=== PATIENT | female | born 1955 | race Caucasian/White ===

== ENCOUNTER 2020-06-02 22:01 | Observation (INO) | payer MEDICARE, SELFPAY ==
--- NOTE | 2020-06-02 22:10 | XR_ITS ---
WS: [id number] XR chest 1V portable [id number] REASON FOR EXAM: Syncope FINDINGS: Mild tortuosity of the thoracic aorta. Normal heart size. No active pulmonary parenchymal or pleural disease noted. No significant bony thorax abnormality. XR/XR chest 1V portable [id number] IMPRESSION: No acute chest abnormality.
[2020-06-02 22:11] VITALS: BP 133/85; BP 144/88; BP 163/92; PULSE 86; PULSE 97; PULSE 98
--- NOTE | 2020-06-02 22:11 | ECG_ITS ---
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
[2020-06-02 22:16] VITALS: PULSE 87; RESP 16; TEMP 36.5; O2SAT 96; BMI 24.6
--- NOTE | 2020-06-02 22:18 | ED_ITS ---
HPI - Syncope General: Chief Complaint: Syncope Stated Complaint: syncope Time Seen by Provider: 06/02/20 22:05 Source: patient and EMS Mode of arrival: EMS Limitations: no limitations History of Present Illness: HPI narrative: Lisseth is a 64-year-old female who comes in after a syncopal spell at home. She has been sick today with a fever as high as 101. There is a known Covid positive patient living in the home. Patient states that she felt ill like she needed to have a bowel movement and quickly tried it get up off the couch to go to the bathroom but passed out when she did so. She was incontinent of stool and vomited but there was no seizure activity described. Patient states she had cramping abdominal pain with this. Patient states now she still feels achy and like she is hurting all over. Denies any preceding chest pain, palpitations or headache. Associated symptoms: Reports abdominal pain, fever(s) and nausea; Deny chest pain, headache(s), lightheadedness or vertigo Review of Systems Const: Reports: fever(s), chills, body aches, fatigue and malaise Eyes: Denies: change in vision, blurry vision, photophobia, eye discomfort, eye discharge, eye redness or yellow eyes ENMT: Denies: throat pain, odynophagia, hoarseness, swelling of lips/tongue, ear or mastoid pain, ear discharge, change in hearing or nasal discharge Card: Reports: syncope; Denies: chest pain, palpitations, irregular heart rhythm, edema, lightheadedness, pre-syncope, dyspnea on exertion or orthopnea Resp: Denies: dyspnea, productive cough, non-productive cough, wheezing, hemoptysis or chest congestion GI: Reports: abdominal pain, nausea, vomiting and diarrhea; Denies: hematemesis, coffee ground emesis, heartburn, constipation, GI cramping, hematochezia or melena : Denies: flank pain, dysuria, urinary frequency, urinary urgency or hematuria Musc: Denies: neck pain, back pain, extremity pain, extremity swelling, joint pain, joint swelling, joint redness, joint warmth or joint stiffness Skin/Breast: Denies: rash, pruritus, erythema, skin pain or skin tenderness Neuro: Denies: headache(s), numbness in extremities, weakness in extremities, sensory changes, lack of coordination, difficulty walking, dizziness, vertigo, confusion, Slurred speech present or seizure-like activity Matt/Lymph: Denies: easy bruising, easy bleeding, petechiae, purpura or enlarged lymph nodes All/Imm: Denies: urticaria, throat swelling, tongue swelling, facial swelling or acute wheezing PFSH ED PFSH: Medical History (Updated 06/03/20 @ 04:39 by Shana Glover) Back pain Gout Uterovaginal prolapse, complete Surgical History (Updated 06/02/20 @ 22:20 by Shana Glover) History of back surgery (~2005) Lumbar History of salpingectomy (~1971) Open salpingectomy Family History (Updated 06/01/20 @ 16:59 by John Luther) Father CAD (coronary artery disease) Mother Hypertension Sister Hypertension Social History (Updated 06/01/20 @ 17:00 by John Israel) Smoking and tobacco status: current every day smoker cigarettes Packs smoked per day: 2 [ Other cigarette details: started age 51 ] Alcohol intake: never Physical Exam Const: COMMON NORMALS: no acute distress, patient oriented x3, no limitations and alert GENERAL APPEARANCE: cooperative HENMT: COMMON NORMALS: normocephalic, atraumatic, external ears normal, EAC's normal and Normal external nose present HEAD & SCALP: normal to inspection, normocephalic and atraumatic FACE & SINUS: normal facial exam and face symmetric NOSE: Normal external nose present and Normal nares present EXTERNAL EAR: Yes external ears normal EXTERNAL AUDITORY CANAL: EAC's normal MOUTH: Normal oral and palatal mucosa present, lip normal and tongue normal Eye: COMMON NORMALS: Equal, round and reactive pupils present and conjunctivae normal GENERAL EYE: appearance normal, both eyes and all related structures ALIGNMENT: Yes alignment normal PERIORBITAL: periorbital findings normal EYELID: eyelids normal CONJUNCTIVA: Yes conjunctivae normal SCLERA: sclerae normal PUPIL: Yes Equal, round and reactive pupils present Neck/C-Spine: COMMON NORMALS: full ROM, no lymphadenopathy, supple, no meningeal signs and no JVD GENERAL: Yes normal visual inspection and Yes trachea midline Chest: COMMONS NORMALS: normal inspection of the chest and normal palpation of entire chest wall Resp: COMMON NORMALS: normal respiratory effort, No retractions, No use of accessory muscles and clear to auscultation bilaterally EFFORT & INSPECTION: Yes able to speak in complete sentences and Yes symmetric chest movement AUSCULTATION: clear to auscultation bilaterally, no crackles, no rales, no rhonchi and no wheezes Cardio: COMMON NORMALS: no JVD, regular rate, regular rhythm, S1 normal heart sound present and S2 normal heart sound present RATE: regular rate RHYTHM: regular rhythm HEART SOUNDS: S1 normal heart sound present, S2 normal heart sound present, no click, no gallops, no murmurs and no rubs GI: COMMON NORMALS: Soft to palpation and No hepatosplenomegaly present PALPATION: Yes Soft to palpation, No Tenderness to palpation present (GI), No Guarding due to palpation present (GI), No Rigid due to palpation, Yes No hepatosplenomegaly present, No Hernia present, No Palpable mass present and No Pulsatile mass present : COMMON NORMALS: Yes no CVA tenderness BLADDER/KIDNEY EXAM: Yes no CVA tenderness EXTERNAL FEMALE EXAM: No Hernia present Back/Pelvis: COMMON NORMALS: no CVA tenderness, thoracic and lumbar spine normal to inspection, no thoracic nor lumbar tenderness and thoraco-lumbar ROM normal Extremity: COMMON NORMALS: normal to inspection, full ROM, capillary refill normal, no joint enlargement, no clubbing, cyanosis or edema and no calf tenderness Neuro: COMMON NORMALS: patient oriented x3, CN's II-XII intact bilaterally, moves all extremities, no focal motor deficits and no sensory deficits noted SENSORIUM/ORIENTATION: Yes alert MENINGEAL SIGNS: Yes no meningeal signs SPEECH: speech normal Psych: COMMON NORMALS: mental status grossly normal, Normal thought process present, cooperative, normal affect, speech normal and activity/motor behavior normal SPEECH: Yes normal speech THOUGHT PROCESS: Normal thought process present Skin: COMMON NORMALS: no rashes or lesions noted, turgor normal, no jaundice, no petechiae and no mottling GENERAL SKIN EXAM: no rashes or lesions noted and turgor normal Course ED course: 0108 -orthostatic blood pressures positive. IV fluids have been initiated. Vital Signs: Vital signs: Vital Signs Temperature 97.7 F 06/02/20 22:16 Pulse Rate 83 06/03/20 04:00 Respiratory Rate 17 06/03/20 04:00 Blood Pressure 119/80 06/03/20 04:00 Pulse Oximetry 95 06/03/20 04:00 MDM - Syncope MDM Narrative: Medical decision making narrative: Lisseth is a nice 64-year-old female who comes in after she had a syncopal spell while needing to go to the bathroom. There was no seizure activity described. I believe this was a vasovagal episode secondary to the urgency to have a bowel movement. Patient does appear to be dehydrated from diarrhea. She does test positive for Covid and has had a known exposure. Overall she feels poorly and I believe she would benefit from coming into the hospital for IV hydration. Case was reviewed with Dr. Nuñez and he is agreeable to admit. Lab Data: Attestation: I reviewed the patient's lab results. Labs: Lab Results 06/02/20 06/02/20 06/02/20 Range/Units 22:10 22:22 22:22 WBC 5.2 (4.0-10.0) 10^3/ uL RBC 4.38 (4.1-5.3) 10^6/u L Hgb 14.6 (11.5-15.3) g/dL Hct 42.4 (37.0-47.0) % MCV 96.8 (81-99) fL MCH 33.3 (28.0-34.0) pg MCHC 34.4 (30.0-36.0) g/dL RDW 12.6 (12.1-15.1) % Plt Count 195 (130-400) 10^3/c mm MPV 9.7 (7.4-10.4) fL Neut % (Auto) 48.3 % Lymph % (Auto) 40.7 % [place] % (Auto) 10.6 % Eos % (Auto) 0.0 % Baso % (Auto) 0.4 % Neut # (Auto) 2.51 (1.8-7.7) 10^3/u L Lymph # (Auto) 2.1 (0.8-4.8) 10^3/u L [place] # (Auto) 0.6 (0.2-0.9) 10^3/u L Eos # (Auto) 0.0 (0.0-0.8) 10^3/u L Baso # (Auto) 0.0 (0.0-0.1) 10^3/u L Nucleated RBC % (a uto) 0 % Nucleated RBCs # 0.0 /100WBC PT 12.50 (12.1-14.9) SECO NDS INR 0.90 (0.8-1.2) Fibrinogen (174-498) mg/dL D-Dimer 0.99 H (0-0.59) ug/mIFE U Specimen Type Sample Site ABG pH (7.35-7.45) ABG pCO2 (35-45) mmHg ABG pO2 (80.0-100.0) mmH g ABG HCO3 (22-26) mmol/L ABG Base Excess (-2.0-2.0) mmol/ L Rick Test Hematocrit (37-47) % O2 Delivery Device FiO2 % Manager Of [employer] ID Sodium 137 (136-145) mmol/L Potassium 4.0 (3.5-5.1) mmol/L Chloride 102 (98-107) mmol/L Carbon Dioxide 24 (22-29) mmol/L Anion Gap 15.0 (5-19) BUN 11 (8-23) mg/dL Creatinine 0.9 (0.5-0.9) mg/dL GFR Calculation 62.6 L (90-130) mL/min Glucose 147 H (65-115) mg/dL Calculated Osmolal ity 286 (285-295) mOsm/k g Lactic Acid Calcium 8.9 (8.5-10.5) mg/dL Magnesium 2.2 (1.7-2.3) mg/dL Total Bilirubin 0.2 (0.15-1.2) mg/dL AST 25 (0-32) U/L ALT 13 (0-33) U/L Alkaline Phosphata se 114 H (35-105) IU/L Lactate Dehydrogen ase (135-214) U/L Creatine Kinase 38 (26-192) U/L Troponin T Baselin e (0-10) ng/L Troponin T 120 Min [place] (0-10) ng/L Delta Troponin T (0-10) ABS# C-Reactive Protein (0.0-4.9) mg/L Total Protein 6.3 L (6.6-8.7) g/dL Albumin 4.2 (3.5-5.2) g/dL Globulin 2.1 (1.3-4.6) g/dL Lipase 59 (13-60) U/L Procalcitonin (0-0.5) ng/mL TSH 3.89 (0.27-4.20) uIU/ mL Free T4 1.28 (0.82-1.77) ng/d L Urine Color (Yellow) Urine Appearance (CLEAR) Urine pH (5-7) Ur Specific Gravit y (1.005-1.030) Urine Protein (Negative) Urine Glucose (UA) (Normal) Urine Ketones (Negative) Urine Blood (Negative) Urine Nitrate (Negative) Urine Bilirubin (Negative) Urine Urobilinogen (Negative) mg/dL Ur Leukocyte Jennie ase (Negative) Serum Ketones Negative (Negative) Influenza Type A A g (Negative) Influenza Type B A g (Negative) SARS-CoV-2 Ag (Rap id) (Negative) 06/02/20 06/02/20 06/02/20 Range/Units 22:22 22:22 22:22 WBC (4.0-10.0) 10^3/ uL RBC (4.1-5.3) 10^6/u L Hgb (11.5-15.3) g/dL Hct (37.0-47.0) % MCV (81-99) fL MCH (28.0-34.0) pg MCHC (30.0-36.0) g/dL RDW (12.1-15.1) % Plt Count (130-400) 10^3/c mm MPV (7.4-10.4) fL Neut % (Auto) % Lymph % (Auto) % [place] % (Auto) % Eos % (Auto) % Baso % (Auto) % Neut # (Auto) (1.8-7.7) 10^3/u L Lymph # (Auto) (0.8-4.8) 10^3/u L [place] # (Auto) (0.2-0.9) 10^3/u L Eos # (Auto) (0.0-0.8) 10^3/u L Baso # (Auto) (0.0-0.1) 10^3/u L Nucleated RBC % (a uto) % Nucleated RBCs # /100WBC PT (12.1-14.9) SECO NDS INR (0.8-1.2) Fibrinogen 449 (174-498) mg/dL D-Dimer (0-0.59) ug/mIFE U Specimen Type Sample Site ABG pH (7.35-7.45) ABG pCO2 (35-45) mmHg ABG pO2 (80.0-100.0) mmH g ABG HCO3 (22-26) mmol/L ABG Base Excess (-2.0-2.0) mmol/ L Rick Test Hematocrit (37-47) % O2 Delivery Device FiO2 % Manager [employer] ID Sodium (136-145) mmol/L Potassium (3.5-5.1) mmol/L Chloride (98-107) mmol/L Carbon Dioxide (22-29) mmol/L Anion Gap (5-19) BUN (8-23) mg/dL Creatinine (0.5-0.9) mg/dL GFR Calculation (90-130) mL/min Glucose (65-115) mg/dL Calculated Osmolal ity (285-295) mOsm/k g Lactic Acid Cancelled Calcium (8.5-10.5) mg/dL Magnesium (1.7-2.3) mg/dL Total Bilirubin (0.15-1.2) mg/dL AST (0-32) U/L ALT (0-33) U/L Alkaline Phosphata se (35-105) IU/L Lactate Dehydrogen ase (135-214) U/L Creatine Kinase (26-192) U/L Troponin T Baselin e 9 (0-10) ng/L Troponin T 120 Min [place] (0-10) ng/L Delta Troponin T (0-10) ABS# C-Reactive Protein (0.0-4.9) mg/L Total Protein (6.6-8.7) g/dL Albumin (3.5-5.2) g/dL Globulin (1.3-4.6) g/dL Lipase (13-60) U/L Procalcitonin (0-0.5) ng/mL TSH (0.27-4.20) uIU/ mL Free T4 (0.82-1.77) ng/d L Urine Color (Yellow) Urine Appearance (CLEAR) Urine pH (5-7) Ur Specific Gravit y (1.005-1.030) Urine Protein (Negative) Urine Glucose (UA) (Normal) Urine Ketones (Negative) Urine Blood (Negative) Urine Nitrate (Negative) Urine Bilirubin (Negative) Urine Urobilinogen (Negative) mg/dL Ur Leukocyte [place] ase (Negative) Serum Ketones (Negative) Influenza Type A A g (Negative) Influenza Type B A g (Negative) SARS-CoV-2 Ag (Rap id) (Negative) 06/02/20 06/02/20 06/02/20 Range/Units 22:22 22:55 23:03 WBC (4.0-10.0) 10^3/ uL RBC (4.1-5.3) 10^6/u L Hgb (11.5-15.3) g/dL Hct (37.0-47.0) % MCV (81-99) fL MCH (28.0-34.0) pg MCHC (30.0-36.0) g/dL RDW (12.1-15.1) % Plt Count (130-400) 10^3/c mm MPV (7.4-10.4) fL Neut % (Auto) % Lymph % (Auto) % [place] % (Auto) % Eos % (Auto) % Baso % (Auto) % Neut # (Auto) (1.8-7.7) 10^3/u L Lymph # (Auto) (0.8-4.8) 10^3/u L [place] # (Auto) (0.2-0.9) 10^3/u L Eos # (Auto) (0.0-0.8) 10^3/u L Baso # (Auto) (0.0-0.1) 10^3/u L Nucleated RBC % (a uto) % Nucleated RBCs # /100WBC PT (12.1-14.9) SECO NDS INR (0.8-1.2) Fibrinogen (174-498) mg/dL D-Dimer (0-0.59) ug/mIFE U Specimen Type Arterial Sample Site Brachial, left ABG pH 7.39 (7.35-7.45) ABG pCO2 37.8 (35-45) mmHg ABG pO2 67.9 L (80.0-100.0) mmH g ABG HCO3 22.9 (22-26) mmol/L ABG Base Excess -1.7 (-2.0-2.0) mmol/ L Rick Test Pos Hematocrit 44.3 (37-47) % O2 Delivery Device None FiO2 21.0 % Manager [employer] ID [id number] Sodium (136-145) mmol/L Potassium (3.5-5.1) mmol/L Chloride (98-107) mmol/L Carbon Dioxide (22-29) mmol/L Anion Gap (5-19) BUN (8-23) mg/dL Creatinine (0.5-0.9) mg/dL GFR Calculation (90-130) mL/min Glucose (65-115) mg/dL Calculated Osmolal ity (285-295) mOsm/k g Lactic Acid 0.7 Calcium (8.5-10.5) mg/dL Magnesium (1.7-2.3) mg/dL Total Bilirubin (0.15-1.2) mg/dL AST (0-32) U/L ALT (0-33) U/L Alkaline Phosphata se (35-105) IU/L Lactate Dehydrogen ase 267 H (135-214) U/L Creatine Kinase (26-192) U/L Troponin T Baselin e (0-10) ng/L Troponin T 120 Min [place] (0-10) ng/L Delta Troponin T (0-10) ABS# C-Reactive Protein 5.8 H (0.0-4.9) mg/L Total Protein (6.6-8.7) g/dL Albumin (3.5-5.2) g/dL Globulin (1.3-4.6) g/dL Lipase (13-60) U/L Procalcitonin 0.06 (0-0.5) ng/mL TSH (0.27-4.20) uIU/ mL Free T4 (0.82-1.77) ng/d L Urine Color (Yellow) Urine Appearance (CLEAR) Urine pH (5-7) Ur Specific Gravit y (1.005-1.030) Urine Protein (Negative) Urine Glucose (UA) (Normal) Urine Ketones (Negative) Urine Blood (Negative) Urine Nitrate (Negative) Urine Bilirubin (Negative) Urine Urobilinogen (Negative) mg/dL Ur Leukocyte [place] (Negative) Serum Ketones (Negative) Influenza Type A A g (Negative) Influenza Type B A g (Negative) SARS-CoV-2 Ag (Rap id) (Negative) 06/02/20 06/02/20 06/03/20 Range/Units 23:10 23:10 00:13 WBC (4.0-10.0) 10^3/ uL RBC (4.1-5.3) 10^6/u L Hgb (11.5-15.3) g/dL Hct (37.0-47.0) % MCV (81-99) fL MCH (28.0-34.0) pg MCHC (30.0-36.0) g/dL RDW (12.1-15.1) % Plt Count (130-400) 10^3/c mm MPV (7.4-10.4) fL Neut % (Auto) % Lymph % (Auto) % [place] % (Auto) % Eos % (Auto) % Baso % (Auto) % Neut # (Auto) (1.8-7.7) 10^3/u L Lymph # (Auto) (0.8-4.8) 10^3/u L [place] # (Auto) (0.2-0.9) 10^3/u L Eos # (Auto) (0.0-0.8) 10^3/u L Baso # (Auto) (0.0-0.1) 10^3/u L Nucleated RBC % (a uto) % Nucleated RBCs # /100WBC PT (12.1-14.9) SECO NDS INR (0.8-1.2) Fibrinogen (174-498) mg/dL D-Dimer (0-0.59) ug/mIFE U Specimen Type Sample Site ABG pH (7.35-7.45) ABG pCO2 (35-45) mmHg ABG pO2 (80.0-100.0) mmH g ABG HCO3 (22-26) mmol/L ABG Base Excess (-2.0-2.0) mmol/ L Rick Test Hematocrit (37-47) % O2 Delivery Device FiO2 % Manager [employer] ID Sodium (136-145) mmol/L Potassium (3.5-5.1) mmol/L Chloride (98-107) mmol/L Carbon Dioxide (22-29) mmol/L Anion Gap (5-19) BUN (8-23) mg/dL Creatinine (0.5-0.9) mg/dL GFR Calculation (90-130) mL/min Glucose (65-115) mg/dL Calculated Osmolal ity (285-295) mOsm/k g Lactic Acid Calcium (8.5-10.5) mg/dL Magnesium (1.7-2.3) mg/dL Total Bilirubin (0.15-1.2) mg/dL AST (0-32) U/L ALT (0-33) U/L Alkaline Phosphata se (35-105) IU/L Lactate Dehydrogen ase (135-214) U/L Creatine Kinase (26-192) U/L Troponin T Baselin e (0-10) ng/L Troponin T 120 Min [place] 6.40 (0-10) ng/L Delta Troponin T -2.60 L (0-10) ABS# C-Reactive Protein (0.0-4.9) mg/L Total Protein (6.6-8.7) g/dL Albumin (3.5-5.2) g/dL Globulin (1.3-4.6) g/dL Lipase (13-60) U/L Procalcitonin (0-0.5) ng/mL TSH (0.27-4.20) uIU/ mL Free T4 (0.82-1.77) ng/d L Urine Color (Yellow) Urine Appearance (CLEAR) Urine pH (5-7) Ur Specific Gravit y (1.005-1.030) Urine Protein (Negative) Urine Glucose (UA) (Normal) Urine Ketones (Negative) Urine Blood (Negative) Urine Nitrate (Negative) Urine Bilirubin (Negative) Urine Urobilinogen (Negative) mg/dL Ur Leukocyte Jenn[place] a[place] (Negative) Serum Ketones (Negative) Influenza Type A A g Negative (Negative) Influenza Type B A g Negative (Negative) SARS-CoV-2 Ag (Rap id) Positive H (Negative) 06/03/20 Range/Units 01:06 WBC (4.0-10.0) 10^3/ uL RBC (4.1-5.3) 10^6/u L Hgb (11.5-15.3) g/dL Hct (37.0-47.0) % MCV (81-99) fL MCH (28.0-34.0) pg MCHC (30.0-36.0) g/dL RDW (12.1-15.1) % Plt Count (130-400) 10^3/c mm MPV (7.4-10.4) fL Neut % (Auto) % Lymph % (Auto) % [place] % (Auto) % Eos % (Auto) % Baso % (Auto) % Neut # (Auto) (1.8-7.7) 10^3/u L Lymph # (Auto) (0.8-4.8) 10^3/u L [place] # (Auto) (0.2-0.9) 10^3/u L Eos # (Auto) (0.0-0.8) 10^3/u L Baso # (Auto) (0.0-0.1) 10^3/u L Nucleated RBC % (a uto) % Nucleated RBCs # /100WBC PT (12.1-14.9) SECO NDS INR (0.8-1.2) Fibrinogen (174-498) mg/dL D-Dimer (0-0.59) ug/mIFE U Specimen Type Sample Site ABG pH (7.35-7.45) ABG pCO2 (35-45) mmHg ABG pO2 (80.0-100.0) mmH g ABG HCO3 (22-26) mmol/L ABG Base Excess (-2.0-2.0) mmol/ L Rick Test Hematocrit (37-47) % O2 Delivery Device FiO2 % Manager [employer] ID Sodium (136-145) mmol/L Potassium (3.5-5.1) mmol/L Chloride (98-107) mmol/L Carbon Dioxide (22-29) mmol/L Anion Gap (5-19) BUN (8-23) mg/dL Creatinine (0.5-0.9) mg/dL GFR Calculation (90-130) mL/min Glucose (65-115) mg/dL Calculated Osmolal ity (285-295) mOsm/k g Lactic Acid Calcium (8.5-10.5) mg/dL Magnesium (1.7-2.3) mg/dL Total Bilirubin (0.15-1.2) mg/dL AST (0-32) U/L ALT (0-33) U/L Alkaline Phosphata se (35-105) IU/L Lactate Dehydrogen ase (135-214) U/L Creatine Kinase (26-192) U/L Troponin T Baselin e (0-10) ng/L Troponin T 120 Min [place] (0-10) ng/L Delta Troponin T (0-10) ABS# C-Reactive Protein (0.0-4.9) mg/L Total Protein (6.6-8.7) g/dL Albumin (3.5-5.2) g/dL Globulin (1.3-4.6) g/dL Lipase (13-60) U/L Procalcitonin (0-0.5) ng/mL TSH (0.27-4.20) uIU/ mL Free T4 (0.82-1.77) ng/d L Urine Color Yellow (Yellow) Urine Appearance Clear (CLEAR) Urine pH 5.0 (5-7) Ur Specific Gravit y 1.020 (1.005-1.030) Urine Protein Neg (Negative) Urine Glucose (UA) Norm (Normal) Urine Ketones Negative (Negative) Urine Blood Neg (Negative) Urine Nitrate Negative (Negative) Urine Bilirubin Neg (Negative) Urine Urobilinogen Norm (Negative) mg/dL Ur Leukocyte Jennie ase Negative (Negative) Serum Ketones (Negative) Influenza Type A A g (Negative) Influenza Type B A g (Negative) SARS-CoV-2 Ag (Rap id) (Negative) Imaging Data^: CXR: Attestation: I personally reviewed and interpreted this imaging study as follows: My impression: No acute cardiopulmonary findings. CTA Chest with Abdomen Pelvis: Radiologist's impression: [place] [address] CT Scan Report Signed Patient: Lisseth Puente Unit #: [id number] : 1955 Age/Sex: 64 / F ADM Date: 06/02/20 Loc: ER Room/Bed: Attending Dr: Ordering Provider/Ordering MD: Shana Glover DO Date of Service: 06/02/20 Procedure(s): CT angio chest w abd pel w con Accession Number(s): [id number] Report Number: [id number] PROCEDURE INFORMATION: Exam: CT Angiography Chest With Contrast Exam date and time: 06/02/2020 11:51 PM Age: 64 years old Clinical indication: Other: Diarrhea; Abdominal pain; Dyspnea; Chest pain; Patient HX: Covid+; Additional info: Syncope, dyspnea abd pain. Diarrhea TECHNIQUE: Imaging protocol: Computed tomographic angiography of the chest with intravenous contrast. 3D rendering (Not supervised by radiologist): MIP and/or 3D reconstructed images were created by the technologist. Radiation optimization: All CT scans at this facility use at least one of these dose optimization techniques: automated exposure control; mA and/or kV adjustment per patient size (includes targeted exams where dose is matched to clinical indication); or iterative reconstruction. Contrast material: OMNI 300; Contrast volume: 95 ml; Contrast route: INTRAVENOUS (IV); COMPARISON: CR XR chest 1V portable [id number] 06/02/2020 10:19 PM RADIATION DOSE METRICS: Total DLP (mGy-cm): 1004.13 FINDINGS: Pulmonary arteries: The pulmonary arteries are adequately opacified for evaluation to the subsegmental level. There is no filling defect to suggest embolism. Aorta: The aorta is unremarkable. There is no aneurysm. Lungs: There is moderate upper lung predominant centrilobular emphysema. There are scattered calcified granulomas in both lungs. There is mild patchy bilateral subpleural lower lung predominant ground-glass opacity. Pleural space: There is no pleural effusion or pneumothorax. Heart: Heart size is normal. There is no pericardial effusion. There is mild coronary artery calcification. Lymph nodes: There is no mediastinal or hilar lymphadenopathy. Bones/joints: Bones are unremarkable. Soft tissues: The extrathoracic soft tissues are unremarkable. Other findings: Visible structures in the upper abdomen are unremarkable. IMPRESSION: 1. No pulmonary embolism. 2. Mild bilateral lung disease. Commonly reported imaging features of COVID-19 pneumonia are present. Other processes such as influenza pneumonia and organizing pneumonia (as can be seen with drug toxicity and connective tissue disease), can produce a similar imaging pattern. PROCEDURE INFORMATION: Exam: CT Abdomen And Pelvis With Contrast Exam date and time: 06/02/2020 11:51 PM Age: 64 years old Clinical indication: Other: Diarrhea; Abdominal pain; Dyspnea; Chest pain; Patient HX: Covid+; Additional info: Syncope, dyspnea abd pain. Diarrhea TECHNIQUE: Imaging protocol: Computed tomography of the abdomen and pelvis with intravenous contrast. Radiation optimization: All CT scans at this facility use at least one of these dose optimization techniques: automated exposure control; mA and/or kV adjustment per patient size (includes targeted exams where dose is matched to clinical indication); or iterative reconstruction. Contrast material: OMNI 300; Contrast volume: 95 ml; Contrast route: INTRAVENOUS (IV); COMPARISON: CR XR chest 1V portable [id number] 06/02/2020 10:19 PM RADIATION DOSE METRICS: Total DLP (mGy-cm): 1004.13 FINDINGS: Liver: The liver is normal. Gallbladder and bile ducts: The gallbladder is normal. There is no biliary dilation. Pancreas: The pancreas is unremarkable. Spleen: The spleen is unremarkable. Adrenal glands: The adrenal glands are unremarkable. Kidneys and ureters: The kidneys are unremarkable. No hydronephrosis or stones. No ureteral dilation. Stomach and bowel: The stomach is decompressed, preventing meaningful evaluation of wall thickness. The small bowel is nondilated. There is moderate distal descending and sigmoid colonic diverticulosis without evidence of diverticulitis. Appendix: The appendix is normal. Intraperitoneal space: There is no free air or significant intraperitoneal free fluid. Vasculature: The portal, splenic and superior mesenteric veins are patent. There is moderate aortic atherosclerotic disease. Lymph nodes: There is no lymphadenopathy in the retroperitoneum, mesentery, pelvis or inguinal regions. Urinary bladder: The urinary bladder is unremarkable. Reproductive: The uterus is unremarkable. There is no adnexal mass or large cyst. Bones/joints: There is moderate degenerative disease in the lumbar spine. The pelvis and hips are intact. Soft tissues: The abdominal wall is intact. CT/CT angio chest w abd pel w con IMPRESSION: 1. No acute findings. 2. Incidental findings above. Radiation Dose CTDIVOL = (mGy): DLP = 1004.13 1004.13 (mGy-cm) Dictated By: Braeden Arceo MD Signed By: Braeden Arceo MD Signed Date/Time: 06/03/20315 DD/ 3 EKG Data^: EKG 1: Attestation: I personally reviewed and interpreted this EKG as follows: EKG interpretation date: 06/02/20 EKG interpretation time: 22:33 Interpretation: Normal sinus rhythm at 88 beats a minute, no blocks, normal intervals, no acute ST-T wave changes. EKG 2: Attestation: I personally reviewed and interpreted this EKG as follows: EKG interpretation date: 06/03/20 EKG interpretation time: 00:29 Interpretation: Normal sinus rhythm at 80 beats a minute, no blocks, normal intervals, normal axis, no acute ST-T wave changes. Discharge Plan Discharge Patient Disposition: Placed in Observation Clinical Impression: Vasovagal syncope, Dehydration, Viral pneumonitis, COVID-19 virus infection Condition: Stable Prescriptions: No Action ibuprofen 200 mg capsule 400 mg PO Q6H PRNRF: 0 Referrals: Leonidas Sanz MD [Primary Care Provider] - Coding Level of Care Code ED Outsole Caser for Chg Fwd Exam Comprehensive
[2020-06-02 22:38] LABS: Basophils % 0.4 %; Hematocrit 42.4 % (37.0-47.0); Hemoglobin 14.6 g/dL (11.5-15.3); Lymphocytes # 2.1 10^3/uL (0.8-4.8); Lymphocytes % 40.7 %; Mean Corpuscular HGB Conc 34.4 g/dL (30.0-36.0); Mean Corpuscular Hemoglobin 33.3 pg (28.0-34.0); Mean Corpuscular Volume 96.8 fL (81-99); Mean Platelet Volume 9.7 fL (7.4-10.4); Monocytes # 0.6 10^3/uL (0.2-0.9); Monocytes % 10.6 %; Neutrophils # 2.51 10^3/uL (1.8-7.7); Neutrophils % 48.3 %; Nucleated Red Blood Cells % 0 %; Platelet Count 195 10^3/cmm (130-400); Red Blood Count 4.38 10^6/uL (4.1-5.3); Red Cell Distribution Width 12.6 % (12.1-15.1); White Blood Count 5.2 10^3/uL (4.0-10.0)
[2020-06-02 22:58] LABS: Troponin(5th) Baseline 9 ng/L (0-10)
[2020-06-02 23:03] LABS: D Dimer 0.99 ug/mIFEU (0-0.59)
[2020-06-02 23:04] LABS: ABG PCO2 37.8 mmHg (35-45); ABG PH Result 7.39 (7.35-7.45); Arterial Blood Gas Hematocrit 44.3 % (37-47); Base Excess ABG -1.7 mmol/L (-2.0-2.0); Blood Gas Allen Test Pos; Blood Gas Sample Site Brachial, left; Blood Gas Sample Type Arterial; HCO3 ABG 22.9 mmol/L (22-26); PO2 ABG 67.9 mmHg (80.0-100.0)
--- NOTE | 2020-06-02 23:18 | CTR_ITS ---
PROCEDURE INFORMATION: Exam: CT Angiography Chest With Contrast Exam date and time: 06/02/2020 11:51 PM Age: 64 years old Clinical indication: Other: Diarrhea; Abdominal pain; Dyspnea; Chest pain; Patient HX: Covid+; Additional info: Syncope, dyspnea abd pain. Diarrhea TECHNIQUE: Imaging protocol: Computed tomographic angiography of the chest with intravenous contrast. 3D rendering (Not supervised by radiologist): MIP and/or 3D reconstructed images were created by the technologist. Radiation optimization: All CT scans at this facility use at least one of these dose optimization techniques: automated exposure control; mA and/or kV adjustment per patient size (includes targeted exams where dose is matched to clinical indication); or iterative reconstruction. Contrast material: OMNI 300; Contrast volume: 95 ml; Contrast route: INTRAVENOUS (IV); COMPARISON: CR XR chest 1V portable [id number] 06/02/2020 10:19 PM RADIATION DOSE METRICS: Total DLP (mGy-cm): 1004.13 FINDINGS: Pulmonary arteries: The pulmonary arteries are adequately opacified for evaluation to the subsegmental level. There is no filling defect to suggest embolism. Aorta: The aorta is unremarkable. There is no aneurysm. Lungs: There is moderate upper lung predominant centrilobular emphysema. There are scattered calcified granulomas in both lungs. There is mild patchy bilateral subpleural lower lung predominant ground-glass opacity. Pleural space: There is no pleural effusion or pneumothorax. Heart: Heart size is normal. There is no pericardial effusion. There is mild coronary artery calcification. Lymph nodes: There is no mediastinal or hilar lymphadenopathy. Bones/joints: Bones are unremarkable. Soft tissues: The extrathoracic soft tissues are unremarkable. Other findings: Visible structures in the upper abdomen are unremarkable. IMPRESSION: 1. No pulmonary embolism. 2. Mild bilateral lung disease. Commonly reported imaging features of COVID-19 pneumonia are present. Other processes such as influenza pneumonia and organizing pneumonia (as can be seen with drug toxicity and connective tissue disease), can produce a similar imaging pattern. PROCEDURE INFORMATION: Exam: CT Abdomen And Pelvis With Contrast Exam date and time: 06/02/2020 11:51 PM Age: 64 years old Clinical indication: Other: Diarrhea; Abdominal pain; Dyspnea; Chest pain; Patient HX: Covid+; Additional info: Syncope, dyspnea abd pain. Diarrhea TECHNIQUE: Imaging protocol: Computed tomography of the abdomen and pelvis with intravenous contrast. Radiation optimization: All CT scans at this facility use at least one of these dose optimization techniques: automated exposure control; mA and/or kV adjustment per patient size (includes targeted exams where dose is matched to clinical indication); or iterative reconstruction. Contrast material: OMNI 300; Contrast volume: 95 ml; Contrast route: INTRAVENOUS (IV); COMPARISON: CR XR chest 1V portable [id number] 06/02/2020 10:19 PM RADIATION DOSE METRICS: Total DLP (mGy-cm): 1004.13 FINDINGS: Liver: The liver is normal. Gallbladder and bile ducts: The gallbladder is normal. There is no biliary dilation. Pancreas: The pancreas is unremarkable. Spleen: The spleen is unremarkable. Adrenal glands: The adrenal glands are unremarkable. Kidneys and ureters: The kidneys are unremarkable. No hydronephrosis or stones. No ureteral dilation. Stomach and bowel: The stomach is decompressed, preventing meaningful evaluation of wall thickness. The small bowel is nondilated. There is moderate distal descending and sigmoid colonic diverticulosis without evidence of diverticulitis. Appendix: The appendix is normal. Intraperitoneal space: There is no free air or significant intraperitoneal free fluid. Vasculature: The portal, splenic and superior mesenteric veins are patent. There is moderate aortic atherosclerotic disease. Lymph nodes: There is no lymphadenopathy in the retroperitoneum, mesentery, pelvis or inguinal regions. Urinary bladder: The urinary bladder is unremarkable. Reproductive: The uterus is unremarkable. There is no adnexal mass or large cyst. Bones/joints: There is moderate degenerative disease in the lumbar spine. The pelvis and hips are intact. Soft tissues: The abdominal wall is intact. CT/CT angio chest w abd pel w con IMPRESSION: 1. No acute findings. 2. Incidental findings above. Radiation Dose CTDIVOL = (mGy): DLP = 1004.13~1004.13 (mGy-cm)
[2020-06-02 23:20] VITALS: BP 149/88; PULSE 97; RESP 18; O2SAT 97
[2020-06-02 23:26] LABS: Ketone (Acetest) Serum Negative (Negative)
[2020-06-02 23:45] LABS: Alanine Aminotransferase 13 U/L (0-33); Albumin Level 4.2 g/dL (3.5-5.2); Alkaline Phosphatase 114 IU/L (35-105); Aspartate Amino Transferase 25 U/L (0-32); Blood Urea Nitrogen 11 mg/dL (8-23); Calcium 8.9 mg/dL (8.5-10.5); Carbon Dioxide 24 mmol/L (22-29); Chloride 102 mmol/L (98-107); Creatine Phosphokinase 38 U/L (26-192); Free T4 Free Thyroxine 1.28 ng/dL (0.82-1.77); Globulin 2.1 g/dL (1.3-4.6); Glomerular Filtration Rate 62.6 mL/min (90-130); Glucose 147 mg/dL (65-115); Lipase 59 U/L (13-60); Magnesium 2.2 mg/dL (1.7-2.3); Osmolality Calculated 286 mOsm/kg (285-295); Sodium 137 mmol/L (136-145); Thyroid Stimulating Hormone 3.89 uIU/mL (0.27-4.20); Total Bilirubin 0.2 mg/dL (0.15-1.2); Total Protein 6.3 g/dL (6.6-8.7)
[2020-06-02 23:50] LABS: Lactic Sepsis W/Reflex 0.7 mmol/L (0.5-2.2)
[2020-06-03] VITALS (10 sets, daily range): BP systolic 119–153; BP diastolic 79–95; PULSE 68–104; RESP 16–22; TEMP 37.4–37.6; O2SAT 93–97
[2020-06-03 00:10] LABS: SARS Covid-2 Antigen Positive (Negative)
[2020-06-03 00:11] LABS: Influenza A by IFA Negative (Negative); Influenza B by IFA Negative (Negative)
--- NOTE | 2020-06-03 00:11 | ECG_ITS ---
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
[2020-06-03] MEDS: sodium chloride 0.9% 1,000 ML 999 ML IV ×2 (01:10)
[2020-06-03 01:17] LABS: Add Urine Microscopic? NO
[2020-06-03 01:24] LABS: Bilirubin Urine Neg (Negative); Blood Urine Neg (Negative); Glucose Urine UA Norm (Normal); Ketones Urine Negative (Negative); Leukocyte Esterase Urine Negative (Negative); Nitrate Urine Negative (Negative); Protein Urine Neg (Negative); Urine Appearance Clear (CLEAR); Urine Color Yellow (Yellow); Urobilinogen Urine Norm (Negative)
[2020-06-03 02:09] LABS: Fibrinogen 449 mg/dL (174-498)
[2020-06-03] MEDS: iohexol 350 mg/mL 100 mL Btl IV (02:21)
[2020-06-03 02:25] LABS: Procalcitonin 0.06 ng/mL (0-0.5)
[2020-06-03 02:36] LABS: C Reactive Protein 5.8 mg/L (0.0-4.9); Lactate Dehydrogenase 267 U/L (135-214)
--- NOTE | 2020-06-03 03:00 | PC.NURSE ---
Hai, son call for more update on pt. Reviewed with Hai, in lobby with permission from pt. Pt to be admitted and varies test - pt is positive for dehydration and positive COVID. female in the background yelling at this RN about what is going on now. Reviewed with female, permission has been given by pt to update Hai. reviewed with Hai, admitting provider Hospitalist will see pt and will continue to run more test. EKG done and repeat labs for cardiac. Possible more testing to be continue. Will pass on need for update from the hospitalist to the family VIRGEN.
--- NOTE | 2020-06-03 03:17 | PC.NURSE ---
family called to check on pt.
--- NOTE | 2020-06-03 04:11 | ECG_ITS ---
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
--- NOTE | 2020-06-03 04:25 | PC.NURSE ---
Trop drawn and sent per protocol, x2 sticks required for the blood draw. Pt tolerated.
--- NOTE | 2020-06-03 04:44 | PM.HP ---
Providers/Chief Complaint Primary Care Provider: Leonidas Sanz MD Chief Complaint: syncope History of Present Illness Lisseth Puente is a 64 year old female with a past medical history of bladder prolapse, who scheduled to have a hysterectomy with bladder sling procedure, gout, chronic back pain, no other significant past medical history, who presents to [facility] due to 3-day history of fatigue, malaise, fevers, chills, diarrhea, poor appetite, nausea, vomiting. Patient tells me that her grandson has been ill, he tested positive for Covid, she was exposed to him. For the last 3 days she has developed high-grade fevers, fatigue, malaise, chills, diarrhea, poor appetite, nausea, vomiting. No chest pain, no shortness of breath, no cough. She does feel lightheaded and dizzy when changing positions. No falls, no injuries. She denies any cardiac history, no chest pain. No history of strokes. No history of COPD. But she is a smoker since turning 51, up to 2 packs/day. She decided to come to the emergency room tonight, as she continued to have nausea, vomiting, lightheadedness. Review of Systems Const: Reports: fever(s), chills, fatigue and malaise Eyes: Denies: change in vision or blurry vision ENMT: Denies: nasal congestion Resp: Denies: dyspnea, productive cough, non-productive cough or wheezing GI: Reports: abdominal pain, nausea, vomiting and diarrhea; Denies: hematemesis, constipation, hematochezia or melena : Denies: flank pain, dysuria or urinary frequency Musc: Denies: neck pain or back pain Skin/Breast: Denies: rash Neuro: Denies: headache(s), dizziness or vertigo Psych: Denies: anxiety or depression Endo: Denies: polyuria or polydipsia Medications/Allergies Home Medications Medication Instructions Recorded Confirmed Last Taken Type ibuprofen 200 mg capsule 400 mg PO Q6H PRN cap 05/30/20 05/30/20 Unknown History Allergies Allergy/AdvReac Type Severity Reaction Status Date / Time No Known Allergies Allergy Unverified 05/30/20 08:02 PFSH Acute PFSH: Medical History Back pain Gout Uterovaginal prolapse, complete Surgical History History of back surgery (~2005) Lumbar History of salpingectomy (~1971) Open salpingectomy Family History Father CAD (coronary artery disease) Mother Hypertension Sister Hypertension Social History Smoking and tobacco status: current every day smoker cigarettes Packs smoked per day: 2 [ Other cigarette details: started age 51 ] Alcohol intake: never Vitals/I&O/Wt Last Vital Signs Temp 97.7 F 06/02/20 22:16 Pulse 83 06/03/20 04:00 Resp 17 06/03/20 04:00 BP 119/80 06/03/20 04:00 Pulse Ox 95 06/03/20 04:00 Weight last 48 hrs Weight 57.153 kg Physical Exam Const: COMMON NORMALS: no acute distress and patient oriented x3 GENERAL APPEARANCE: cooperative and comfortable HENMT: COMMON NORMALS: normocephalic HEAD & SCALP: normocephalic Eye: COMMON NORMALS: Equal, round and reactive pupils present and EOMs intact bilaterally GENERAL EYE: appearance normal, both eyes and all related structures PUPIL: Yes Equal, round and reactive pupils present Neck/C-Spine: COMMON NORMALS: full ROM, no lymphadenopathy, no JVD and Thyroid normal THYROID: Thyroid normal Resp: COMMON NORMALS: normal respiratory effort, No retractions, No use of accessory muscles and clear to auscultation bilaterally AUSCULTATION: clear to auscultation bilaterally Cardio: COMMON NORMALS: no JVD, regular rate, regular rhythm, S1 normal heart sound present, S2 normal heart sound present, No gallops present (Cardio), No clicks present (Cardio) and No murmurs present (Cardio) RATE: regular rate RHYTHM: regular rhythm HEART SOUNDS: S1 normal heart sound present and S2 normal heart sound present GI: COMMON NORMALS: Normal to inspection, nondistended, normoactive bowel sounds present, Soft to palpation, non-tender and No hepatosplenomegaly present PALPATION: Yes Soft to palpation and Yes No hepatosplenomegaly present Extremity: COMMON NORMALS: normal to inspection, full ROM and no pedal edema Neuro: COMMON NORMALS: patient oriented x3, CN's II-XII intact bilaterally, moves all extremities and no focal motor deficits Psych: COMMON NORMALS: mental status grossly normal, Normal thought process present and cooperative THOUGHT PROCESS: Normal thought process present Data : 06/02/20 22:10 06/02/20 22:22 Micro: Microbiology 06/02/20 23:10 Blood Culture - Preliminary Blood SPECIMEN COLLECTED A&P Assessment and plan (1) COVID-19: -COVID-19 positive. -Currently not requiring any oxygen -No complaints of shortness of breath, no complaints of cough -Albuterol as needed, oxygen therapy as needed -Monitor oxygen saturations, monitor for fevers, Tylenol for fevers -Continue IV hydration -DNR/DNI -Lovenox for DVT prophylaxis -Currently hold off on Decadron or remdesivir Status: Acute (2) Viral pneumonitis: -CT of the chest shows mild bilateral lung disease, reported imaging finding of COVID-19 pneumonia Status: Acute (3) Dehydration: -Continue IV hydration -Check orthostats in the morning Status: Acute (4) Vasovagal syncope: Status: Acute (5) Orthostatic hypotension: -Orthostatic positive secondary dehydration, continue IV hydration -Check orthostats in the morning Status: Acute (6) Centrilobular emphysema: Status: Acute Attestations Medical Necessity Statement*: Patient requires hospitalization, outpatient with observation, for COVID-19, viral pneumonitis, dehydration, orthostatic positive Coding Level of Care Code Acute Keyboard Teacher for [facility] Diagnoses COVID-19 U07.1 Viral pneumonitis J12.9 Dehydration E86.0 Vasovagal syncope R55 Orthostatic hypotension I95.1 Centrilobular emphysema J43.2
[2020-06-03 05:18] LABS: Troponin 5 6HR 6.84 ng/L (0-10)
[2020-06-03 05:20] LABS: Troponin 5 6HR Delta -2.16 ng/L (0-12)
--- NOTE | 2020-06-03 05:51 | PC.NURSE ---
Pt appears to be resting with eyes closed. Waiting on admission.
[2020-06-03] MEDS: enoxaparin 40 mg/0.4 mL Syringe SUBCUT (09:30)
--- NOTE | 2020-06-03 09:42 | P.DS_ITS ---
Discharge Providers Date of Admission: 06/03/20 04:39 Date of Discharge: June 03, 2020 Attending Provider at Admission: Isaiah Nuñez MD Attending Provider at Discharge: Huy Avery Primary Care Provider: Leonidas Sanz MD Diagnoses at Discharge Discharge Diagnosis (1) COVID-19: Status: Acute (2) Viral pneumonitis: Status: Acute (3) Dehydration: Status: Acute (4) Vasovagal syncope: Status: Acute (5) Orthostatic hypotension: Status: Acute (6) Centrilobular emphysema: Status: Acute Reason for Visit Reason for Visit: syncope Hospital Course Discharge Summary: Very pleasant 64-year-old lady was placed in observation in the hospital after 3 days symptoms of nausea, vomiting, diarrhea, poor oral intake, lightheadedness on sitting up, changing positions, with noted dehydration on presentation, initially with noted orthostasis, this improved with 2 L IV boluses, she has had no further diarrhea so far. No vomiting. She reports she is feeling much better. Her oxygenation has been good, she has been saturating 96% on room air. She denies any shortness of breath, no cough. Lungs sound clear on exam. D-dimer moderately elevated at 0.99. CT chest abdomen pelvis with no PE, with mild bilateral lung disease, with features of COVID-19 pneumonia. Abdomen pelvis with no acute findings. Please see full report for details and incidental findings. She requests to return home. Since she is doing very well, we will have her have some breakfast this morning to make sure she is tolerating. Will check home oxygen evaluation. If there are no further issues should be safe to discharge, however, we have had a detailed discussion regarding any red flags and she fully understands that patients with coronavirus sometimes temporarily get better, and subsequently get worse again. Discussed several times what to watch out for, and to call an ambulance in case there are any concerning symptoms whatsoever. She also should maintain isolation including from her is not known to have coronavirus until at least 10 days after onset of her symptoms, and at least 24 hours afebrile and asymptomatic. Physical Exam Const: COMMON NORMALS: no acute distress, patient oriented x3 and alert ORIENTATION/CONSCIOUSNESS: Yes awake OTHER: Energetic. In good spirits. Wants to return home. HENMT: COMMON NORMALS: oropharynx normal Neck/C-Spine: COMMON NORMALS: no JVD Resp: COMMON NORMALS: normal respiratory effort and clear to auscultation bilaterally AUSCULTATION: clear to auscultation bilaterally Cardio: COMMON NORMALS: no JVD, regular rhythm, S1 normal heart sound present, S2 normal heart sound present and No murmurs present (Cardio) RHYTHM: regular rhythm HEART SOUNDS: S1 normal heart sound present and S2 normal heart sound present GI: COMMON NORMALS: Normal to inspection, nondistended, normoactive bowel sounds present, Soft to palpation and non-tender PALPATION: Yes Soft to palpation Extremity: COMMON NORMALS: no joint enlargement and no pedal edema Neuro: COMMON NORMALS: patient oriented x3 and moves all extremities SENSORIUM/ORIENTATION: Yes alert Skin: COMMON NORMALS: no rashes or lesions noted GENERAL SKIN EXAM: no rashes or lesions noted Discharge Data Data Completed and Pending: Completed Studies During Hospitalization Category Date Time Status CT angio chest w abd pel w con Stat Cat Scan 06/02/20 23:18 Completed XR chest 1V barry ble [id number] Stat Exams 06/02/20 22:10 Completed Pending at discharge Category Date Time Status Blood Culture Sta t Lab 06/02/20 08:57 Results C Reactive Protei n AM LABS Lab 06/04/20 04:00 Ordered C Reactive Protei n AM LABS Lab 06/05/20 04:00 Ordered C Reactive Protei n AM LABS Lab 06/06/20 04:00 Ordered Complete Blood Co unt w/Auto AM LABS Lab 06/04/20 04:00 Ordered Complete Blood Co unt w/Auto AM LABS Lab 06/05/20 04:00 Ordered Complete Blood Co unt w/Auto AM LABS Lab 06/06/20 04:00 Ordered Comprehensive Met abolic Panel AM LA BS Lab 06/04/20 04:00 Ordered Comprehensive Met abolic Panel AM LA BS Lab 06/05/20 04:00 Ordered Comprehensive Met abolic Panel AM LA BS Lab 06/06/20 04:[address] at Lab 06/03/20 06:16 Ordered Magnesium AM LABS Lab 06/04/20 04:00 Ordered Magnesium AM LABS Lab 06/05/20 04:00 Ordered Magnesium AM LABS Lab 06/06/20 04:00 Ordered Phosphorus AM LAB S Lab 06/04/20 04:00 Ordered Phosphorus AM LAB S Lab 06/05/20 04:00 Ordered Phosphorus AM LAB S Lab 06/06/20 04:00 Ordered Procalcitonin AM LABS Lab 06/04/20 04:00 Ordered Procalcitonin AM LABS Lab 06/05/20 04:00 Ordered Procalcitonin AM LABS Lab 06/06/20 04:00 Ordered Thyroid Stimulati ng Hormone AM LABS Lab 06/04/20 04:00 Ordered Labs from last 24 hours 06/03/20 06/03/20 06/03/20 04:11 01:06 00:13 WBC RBC Hgb Hct MCV MCH MCHC RDW Plt Count MPV Neut % (Auto) Lymph % (Auto) Craven % (Auto) Eos % (Auto) Baso % (Auto) Neut # (Auto) Lymph # (Auto) Craven # (Auto) Eos # (Auto) Baso # (Auto) Nucleated RBC % (a uto) Nucleated RBCs # PT INR Fibrinogen D-Dimer Specimen Type Sample Site ABG pH ABG pCO2 ABG pO2 ABG HCO3 ABG Base Excess Rick Test Hematocrit O2 Delivery Device FiO2 [employer] ID Sodium Potassium Chloride Carbon Dioxide Anion Gap BUN Creatinine GFR Calculation Glucose Calculated Osmolal ity Lactic Acid Calcium Magnesium Total Bilirubin AST ALT Alkaline Phosphata se Lactate Dehydrogen ase Creatine Kinase Troponin T Baselin e Troponin T 120 Min [place] 6.40 Delta Troponin T -2.60 L Troponin T Hi Sens 6Hr 6.84 Troponin T Hi Sens 6Hr Delta -2.16 L C-Reactive Protein Total Protein Albumin Globulin Lipase Procalcitonin TSH Free T4 Urine Color Yellow Urine Appearance Clear Urine pH 5.0 Ur Specific Gravit y 1.020 Urine Protein Neg Urine Glucose (UA) Norm Urine Ketones Negative Urine Blood Neg Urine Nitrate Negative Urine Bilirubin Neg Urine Urobilinogen Norm Ur Leukocyte Jennie ase Negative Serum Ketones Influenza Type A A g Influenza Type B A g SARS-CoV-2 Ag (Rap id) 06/02/20 06/02/20 06/02/20 23:10 23:10 23:03 WBC RBC Hgb Hct MCV MCH MCHC RDW Plt Count MPV Neut % (Auto) Lymph % (Auto) Craven % (Auto) Eos % (Auto) Baso % (Auto) Neut # (Auto) Lymph # (Auto) [place] # (Auto) Eos # (Auto) Baso # (Auto) Nucleated RBC % (a uto) Nucleated RBCs # PT INR Fibrinogen D-Dimer Specimen Type Sample Site ABG pH ABG pCO2 ABG pO2 ABG HCO3 ABG Base Excess Rick Test Hematocrit O2 Delivery Device FiO2 [employer] ID Sodium Potassium Chloride Carbon Dioxide Anion Gap BUN Creatinine GFR Calculation Glucose Calculated Osmolal ity Lactic Acid 0.7 Calcium Magnesium Total Bilirubin AST ALT Alkaline Phosphata se Lactate Dehydrogen ase Creatine Kinase Troponin T Baselin e Troponin T 120 Min [place] Delta Troponin T Troponin T Hi Sens 6Hr Troponin T Hi Sens 6Hr Delta C-Reactive Protein Total Protein Albumin Globulin Lipase Procalcitonin TSH Free T4 Urine Color Urine Appearance Urine pH Ur Specific Gravit y Urine Protein Urine Glucose (UA) Urine Ketones Urine Blood Urine Nitrate Urine Bilirubin Urine Urobilinogen Ur Leukocyte Jennie a[place] Serum Ketones Influenza Type A A g Negative Influenza Type B A g Negative SARS-CoV-2 Ag (Rap id) Positive H 06/02/20 06/02/20 06/02/20 22:55 22:22 22:22 WBC RBC Hgb Hct MCV MCH MCHC RDW Plt Count MPV Neut % (Auto) Lymph % (Auto) Craven % (Auto) Eos % (Auto) Baso % (Auto) Neut # (Auto) Lymph # (Auto) Craven # (Auto) Eos # (Auto) Baso # (Auto) Nucleated RBC % (a uto) Nucleated RBCs # PT INR Fibrinogen 449 D-Dimer Specimen Type Arterial Sample Site Brachial, left ABG pH 7.39 ABG pCO2 37.8 ABG pO2 67.9 L ABG HCO3 22.9 ABG Base Excess -1.7 Rick Test Pos Hematocrit 44.3 O2 Delivery Device None FiO2 21.0 [employer] ID [id number] Sodium Potassium Chloride Carbon Dioxide Anion Gap BUN Creatinine GFR Calculation Glucose Calculated Osmolal ity Lactic Acid Calcium Magnesium Total Bilirubin AST ALT Alkaline Phosphata se Lactate Dehydrogen ase 267 H Creatine Kinase Troponin T Baselin e Troponin T 120 Min [place] Delta Troponin T Troponin T Hi Sens 6Hr Troponin T Hi Sens 6Hr Delta C-Reactive Protein 5.8 H Total Protein Albumin Globulin Lipase Procalcitonin 0.06 TSH Free T4 Urine Color Urine Appearance Urine pH Ur Specific Gravit y Urine Protein Urine Glucose (UA) Urine Ketones Urine Blood Urine Nitrate Urine Bilirubin Urine Urobilinogen Ur Leukocyte [place] Serum Ketones Influenza Type A A g Influenza Type B A g SARS-CoV-2 Ag (Rap id) 06/02/20 06/02/20 06/02/20 22:22 22:22 22:22 WBC RBC Hgb Hct MCV MCH MCHC RDW Plt Count MPV Neut % (Auto) Lymph % (Auto) [place]ven % (Auto) Eos % (Auto) Baso % (Auto) Neut # (Auto) Lymph # (Auto) [place]ven # (Auto) Eos # (Auto) Baso # (Auto) Nucleated RBC % (a uto) Nucleated RBCs # PT INR Fibrinogen D-Dimer Specimen Type Sample Site ABG pH ABG pCO2 ABG pO2 ABG HCO3 ABG Base Excess Rick Test Hematocrit O2 Delivery Device FiO2 [employer] Manager ID Sodium 137 Potassium 4.0 Chloride 102 Carbon Dioxide 24 Anion Gap 15.0 BUN 11 Creatinine 0.9 GFR Calculation 62.6 L Glucose 147 H Calculated Osmolal ity 286 Lactic Acid Cancelled Calcium 8.9 Magnesium 2.2 Total Bilirubin 0.2 AST 25 ALT 13 Alkaline Phosphata se 114 H Lactate Dehydrogen ase Creatine Kinase 38 Troponin T Baselin e 9 Troponin T 120 Min [place] Delta Troponin T Troponin T Hi Sens 6Hr Troponin T Hi Sens 6Hr Delta C-Reactive Protein Total Protein 6.3 L Albumin 4.2 Globulin 2.1 Lipase 59 Procalcitonin TSH 3.89 Free T4 1.28 Urine Color Urine Appearance Urine pH Ur Specific Gravit y Urine Protein Urine Glucose (UA) Urine Ketones Urine Blood Urine Nitrate Urine Bilirubin Urine Urobilinogen Ur Leukocyte [place] Serum Ketones Negative Influenza Type A A g Influenza Type B A g SARS-CoV-2 Ag (Rap id) 06/02/20 06/02/20 22:22 22:10 WBC 5.2 RBC 4.38 Hgb 14.6 Hct 42.4 MCV 96.8 MCH 33.3 MCHC 34.4 RDW 12.6 Plt Count 195 MPV 9.7 Neut % (Auto) 48.3 Lymph % (Auto) 40.7 Craven % (Auto) 10.6 Eos % (Auto) 0.0 Baso % (Auto) 0.4 Neut # (Auto) 2.51 Lymph # (Auto) 2.1 Craven # (Auto) 0.6 Eos # (Auto) 0.0 Baso # (Auto) 0.0 Nucleated RBC % (a uto) 0 Nucleated RBCs # 0.0 PT 12.50 INR 0.90 Fibrinogen D-Dimer 0.99 H Specimen Type Sample Site ABG pH ABG pCO2 ABG pO2 ABG HCO3 ABG Base Excess Rick Test Hematocrit O2 Delivery Device FiO2 [employer] Manager ID Sodium Potassium Chloride Carbon Dioxide Anion Gap BUN Creatinine GFR Calculation Glucose Calculated Osmolal ity Lactic Acid Calcium Magnesium Total Bilirubin AST ALT Alkaline Phosphata se Lactate Dehydrogen ase Creatine Kinase Troponin T Baselin e Troponin T 120 Min [place] Delta Troponin T Troponin T Hi Sens 6Hr Troponin T Hi Sens 6Hr Delta C-Reactive Protein Total Protein Albumin Globulin Lipase Procalcitonin TSH Free T4 Urine Color Urine Appearance Urine pH Ur Specific Gravit y Urine Protein Urine Glucose (UA) Urine Ketones Urine Blood Urine Nitrate Urine Bilirubin Urine Urobilinogen Ur Leukocyte [place] Serum Ketones Influenza Type A A g Influenza Type B A g SARS-CoV-2 Ag (Rap id) Vitals: Last Vital Signs Temp 99.4 F 06/03/20 06:16 Pulse 89 06/03/20 08:03 Resp 18 06/03/20 08:03 BP 150/79 06/03/20 06:16 Pulse Ox 96 06/03/20 08:03 Discharge Plan Discharge Patient Disposition: Home Condition: Stable Prescriptions: Discontinued ibuprofen 200 mg capsule 400 - 800 mg PO PRN RF: 0 Discharge Orders: Discharge Order (Routine); Ordered 06/03/20 Ordered By: Huy Avery Referrals: Leonidas Sanz MD [Primary Care Provider] - 1 week (Please set up a telehealth visit if it is possible within 48-72 hours. Otherwise please follow- up with primary care provider after about a week unless otherwise instructed.) Discharge Diet: Advance as tolerated Discharge Activity: Increase activity as tolerated Activity Restrictions/Additional Instructions: Slow oral intake at first, increase as tolerating. Please be aware that people with coronavirus sometimes get worse after initially getting better, and so if there are any concerning symptoms, including any progressive shortness of breath, any severe fatigue, any fainting, chest pain or pressure, severe nausea vomiting/diarrhea with dehydration or inability to take oral food or drink, color change with finger lips turning blue, or any other concerning symptoms, please seek medical attention immediately, call and ambulance and go to ER. Please maintain isolation including from your as infection can likely spread to others who have not been infected. Please maintain isolation at home, for at least 10 days from onset of your symptoms, and with at least 24 without fever or symptoms prior to discontinuation of isolation. If your symptoms continue, maintain isolation, contact your primary care physician's office for additional instructions with discontinuation. 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
[2020-06-03 14:02] LABS: Estmated Average Glucose 103; Hemoglobin A1C 5.2 % (4.0-6.0)
--- NOTE | 2020-06-03 15:32 | PC.RESP ---
Smoking Cessation information sent to patient.
== END 2020-06-03 10:47 | disposition home or self-care (01) ==
LOC: ER 06-03 04:39 → MEDSURG 06-03 06:00
PROVIDERS: Emergency Medicine; Admitting Provider Family Medicine; PCP General Practice; Visit Provider Internal Medicine
DX: U07.1 COVID-19 (principal); J12.9 Viral pneumonia, unspecified; E86.0 Dehydration; R55 Syncope and collapse; I95.1 Orthostatic hypotension; J43.2 Centrilobular emphysema; F17.210 Nicotine dependence, cigarettes, uncomplicated; Z66 Do not resuscitate
CPT/HCPCS: 12345; 36415; 36600; 71045; 71275; 74177; 80053; 81003; 82009; 82550; 82803; 83036; 83605; 83615; 83690; 83735; 84145; 84439; 84443; 84484; 85025; 85378; 85384; 85610; 86140; 87040; 87426; 87804; 93005; 96360; 96361; 96372; 99284; 99285; G0378; J1650; J3535; J7030; Q9967

== ENCOUNTER 2020-08-16 06:01 | Day surgery (SDC) | payer MEDICARE, SELFPAY ==
--- NOTE | 2020-08-11 12:17 | ANES.PREANE2 ---
Pre-Anesthetic Assessment Pre-Anesthetic Assessment: Height/Weight: Height 1.52 m Weight 57.153 kg Preop Diagnosis: Complete uterovaginal prolapse Proposed Procedure: Operation Date: 08/16/20 07:00 Proposed Procedures p Total Vaginal Hysterectomy 16611 [id number] N81.3(Not Applicable) - Gio Luther MD s Colpocleisis(Not Applicable) - MD aditi Bangura Salpingo-Oophorectomy (Vaginal)(Bilateral) - Gio Luther MD Was Beta Radha taken within 24 hours: N/A Social: Social History: Tobacco and No alcohol Exam: Pre-Anes Outpt Exam: alert, oriented x 3 and regular rate & rhythm Additional Exam Findings (including area of procedure): Rhonchi Airway: Submandibular: WNL Cervical ROM: WNL MP: 2 Dentition: Chipped Additional comments: Very poor dentition, multiple missing and craked Pulmonary: Pulmonary: COPD Anesthetic Plan: ASA status: 3 Anesthesia: General Risk of > 500 ml blood loss (7ml/kg in children): No PFSH Anesthesia PFSH: Medical History (Updated 06/29/20 @ 14:00 by Gio Luther MD) Back pain Centrilobular emphysema Gout Orthostatic hypotension Vasovagal syncope Surgical History History of back surgery (~2005) Lumbar History of salpingectomy (~1971) Open procedure for treatment of ectopic S/P tonsillectomy Family History Father CAD (coronary artery disease) Mother Hypertension Sister Hypertension Social History (Updated 07/28/20 @ 08:20 by ODILIA Luque) Smoking and tobacco status: current every day smoker cigarettes Packs smoked per day: 2 [ Other cigarette details: started age 51 ] Alcohol intake: never Data Anesthesia Cardiac Studies: No Data to Display
[2020-08-11 12:33] LABS: Basophils % 0.5 %; Eosinophils % 0.3 %; Hematocrit 43.1 % (37.0-47.0); Hemoglobin 14.5 g/dL (11.5-15.3); Lymphocytes # 2.1 10^3/uL (0.8-4.8); Lymphocytes % 35.3 %; Mean Corpuscular HGB Conc 33.6 g/dL (30.0-36.0); Mean Corpuscular Hemoglobin 33.3 pg (28.0-34.0); Mean Corpuscular Volume 99.1 fL (81-99); Monocytes # 0.4 10^3/uL (0.2-0.9); Monocytes % 6.7 %; Neutrophils # 3.32 10^3/uL (1.8-7.7); Nucleated Red Blood Cells % 0 %; Platelet Count 330 10^3/cmm (130-400); Red Blood Count 4.35 10^6/uL (4.1-5.3); Red Cell Distribution Width 12.4 % (12.1-15.1); White Blood Count 5.8 10^3/uL (4.0-10.0)
[2020-08-16] VITALS (18 sets, daily range): BP systolic 136–174; BP diastolic 79–104; PULSE 75–103; RESP 12–18; TEMP 36.3–37; O2SAT 94–100
[2020-08-16] MEDS: phenazopyridine 100 mg Tablet 200 MG PO ×2 (06:15→14:48)
[2020-08-16] MEDS: gabapentin 300 mg Capsule PO (06:15)
[2020-08-16] MEDS: ketorolac 30 mg/mL INJ IVP ×2 (06:23→14:47)
[2020-08-16] MEDS: sodium chloride 0.9% 1,000 ML 30 ML IV (06:24)
--- NOTE | 2020-08-16 06:40 | P.HPUD_ITS ---
Surgery/Procedure H&P Update DATE OF PROCEDURE: August 16, 2020 DATE H&P PERFORMED: 08/12/20 H&P UPDATE INFORMATION: I have reviewed H&P completed within last 30 days, I have examined patient prior to procedure, No changes to prior documentation and H&P is in [facility] EMR on date indicated PREOP DIAGNOSIS: Complete uterovaginal prolapse PLANNED PROCEDURE: Operation Date: 08/16/20 07:00 Proposed Procedures p Total Vaginal Hysterectomy [id number] N81.3(Not Applicable) - Gio Luther MD s Colpocleisis(Not Applicable) - Gio Luther MD s Salpingo-Oophorectomy (Vaginal)(Bilateral) - Gio Luther MD
--- NOTE | 2020-08-16 07:42 | SUR.OPER ---
0730 daughter updated of surgical status
--- NOTE | 2020-08-16 08:34 | SUR.OPER ---
0834 daughter updated of surgical status
[2020-08-16] MEDS: vasopressin 20 unit/mL INJ INJECTION (08:57)
--- NOTE | 2020-08-16 09:23 | PM.OP ---
Operative Report Date of procedure: August 16, 2020 Pre-op Diagnosis: Complete uterovaginal prolapse Post-op Diagnosis: Complete uterovaginal prolapse Procedure Done: Total vaginal hysterectomy with colpocleisis Specimens removed/disposition: Uterus, cervix Surgeon: Gio Luther Professor Of Apologetics: None Anesthesia: General Estimated blood loss (mL): 100 IV fluids (mL): 1,000 Urine output (mL): 100 Complications: None Findings: 1. Complete uterovaginal prolapse. Small uterus noted. Ovaries were very small and pulled laterally. No palpable masses were noted with the ovaries. 2. Mass noted at the back of the throat and base of the tongue per anesthesia. Noted at time of intubation. Brief History: Patient is a 65-year-old female 3, para 2-0-1-2 who is postmenopausal. She had presented to the office on 05/30/2020 as a referral from Dr. Irvin due to uterovaginal prolapse. She reported having had prolapse problems for several years . She reports having a ball that protrudes from the vagina. Denied any pain associated with it. She reports that she does have to push in on it to assist with emptying her bladder. She denied any leaking of urine at this point. On exam she had been found to have 1/3-4th degree uterine prolapse with 3rd-4th degree cystocele and high rectocele. Treatment options were discussed with her and she wishes to proceed with a hysterectomy and closure of the vagina (colpocleisis). Procedure: Patient was taken to the operating room where general anesthesia was obtained. She was prepped and draped in usual sterile fashion in the dorsal supine position with legs in Rick style stirrups. Sequential compression boots were placed prior to starting the case. Schmidt catheter was inserted and exam under anesthesia was performed. She was found to have fourth degree uterine prolapse, 3rd-4th degree cystocele, and high rectocele. Cervix was grasped with Yael clamps. The cervix was circumferentially injected with dilute Pitressin solution. A circumferential incision was made with a knife and the bladder was bluntly dissected off of the lower uterine segment. Posterior cul-de-sac was sharply entered and the peritoneum tagged to the vaginal mucosa in the midline. Weighted retractor was placed in the posterior cul-de-sac. The uterosacral ligaments were clamped, cut, and suture ligated with 0 Vicryl suture bilaterally. The cardinal ligament complexes were clamped, cut, and suture ligated with 0 Vicryl suture bilaterally. The uterus was very small and I was able to pass a finger around the fundus of the uterus to delineate the reflection of the bladder from the anterior uterus. This area was sharply opened and the anterior cul-de-sac entered. A long right angle retractor was used to elevate the bladder away from the uterus. The remaining portions of the broad ligament were serially clamped, cut, and suture ligated with 0 Vicryl suture bilaterally until the uterus was completely excised. The pedicles were inspected and noted to be hemostatic. The ovaries were pulled laterally and unable to be visualized. I was able to palpate them and they palpated a small with no masses noted. The peritoneum was identified anteriorly and grasped with an Allis clamp. Using 2-0 chromic suture, the peritoneum was closed in a pursestring fashion. The uterosacral ligaments and cardinal ligament complexes were then tied in the midline. Anteriorly, the vaginal mucosa was injected with dilute Pitressin solution. It was undermined in the midline and opened anteriorly. The skin of the anterior vagina was bluntly and sharply dissected off of the vesicovaginal fascia to the level of the urethra. The dissection of the vaginal mucosa was then carried around laterally around the vaginal vault region. Posterior vaginal wall was injected with dilute Pitressin solution. The skin was then sharply and bluntly dissected off of the paravaginal fascia until approximately half the length of the posterior vaginal wall had been . Excess vaginal mucosa was excised. The paravaginal fascia was then tucked in and closed in multiple layers with pursestring sutures of 2-0 Vicryl suture. The hymenal ring was grasped posteriorly and the perineum and the remaining portion of the posterior vaginal wall was injected with dilute Pitressin solution. A wedge shaped piece of skin was excised from the perineum. The posterior vaginal wall was undermined in the midline and opened to meet with the dissection anteriorly. The vaginal mucosa was then sharply and bluntly dissected along the rectovaginal fascia. This was carried along the lateral perdomo to meet with the dissection anteriorly. The vagina was further closed using interrupted stitches of 2-0 Vicryl suture bringing the vaginal perdomo together laterally. Once the level of the urethrovesical junction was reached, no further plication of the paravaginal fascia was performed. Excess vaginal mucosa was excised. The skin was reapproximated using 3-0 Vicryl suture in a running locking fashion. The perineal body was further built-up using interrupted stitches of 2-0 Vicryl suture. The superficial layer of the perineum was reapproximated using 3-0 Vicryl suture in a running fashion. Skin was reapproximated using 3-0 Vicryl suture in a subcuticular fashion. At completion of the case, she had an approximately 1 cm depth to the vagina with narrowing of the vaginal opening as well. Patient tolerated the procedure well. Sponge, needle, and instrument counts were correct. DRAINS: Schmidt catheter POSTOPERATIVE STATUS: The patient was transferred to the recovery room in satisfactory condition
[2020-08-16] MEDS: HYDROmorphone 1 mg/mL INJ 1 mL 0.25 MG IVP (09:39)
[2020-08-16] MEDS: dextrose 5%-lactated ringers 1,000 ML 125 ML IV (10:33)
--- NOTE | 2020-08-16 12:10 | PC.NURSE ---
Patient ambulated in hallway at this time. Patient did well but reports she is very tired. Patient taken back to room and assisted to bed.
--- NOTE | 2020-08-16 14:09 | ANE.PACU2 ---
Inpatient post-anesthesia follow up: Airway intact: Yes Vital signs: Temperature 98.2 F Pulse Rate 77 Respiratory Rate 12 Blood Pressure 141/86 Pulse Oximetry 95 Oxygen Delivery Me thod Room Air Oxygen Flow Rate 6 Fraction of Inspir ed Oxygen Hydration adequate: Yes Nausea and vomiting: No Pain level: 2 Mental status: Baseline
[2020-08-16] MEDS: docusate sodium 100 mg Capsule PO (17:48)
[2020-08-16] MEDS: TRAMadol 50 mg Tablet PO (20:13)
[2020-08-17] MEDS: TRAMadol 50 mg Tablet PO ×2 (01:31→08:53)
[2020-08-17] MEDS: phenazopyridine 100 mg Tablet 200 MG PO ×2 (01:31→08:58)
[2020-08-17] MEDS: ibuprofen 800 mg tablet PO ×2 (01:37→08:53)
[2020-08-17 03:00] VITALS: BP 167/83; PULSE 90; TEMP 36.8; O2SAT 96
[2020-08-17 05:31] LABS: Hematocrit 34.6 % (37.0-47.0); Hemoglobin 11.7 g/dL (11.5-15.3); Mean Corpuscular HGB Conc 33.8 g/dL (30.0-36.0); Mean Corpuscular Hemoglobin 33.5 pg (28.0-34.0); Mean Corpuscular Volume 99.1 fL (81-99); Mean Platelet Volume 8.8 fL (7.4-10.4); Platelet Count 273 10^3/cmm (130-400); Red Blood Count 3.49 10^6/uL (4.1-5.3); Red Cell Distribution Width 12.1 % (12.1-15.1); White Blood Count 11.3 10^3/uL (4.0-10.0)
[2020-08-17 07:15] VITALS: BP 146/85; PULSE 94; RESP 16; TEMP 36.9; O2SAT 95
[2020-08-17] MEDS: docusate sodium 100 mg Capsule PO (08:53)
--- NOTE | 2020-08-17 09:11 | PM.DCS ---
Discharge Providers Date of Discharge: August 17, 2020 Attending Provider at Admission: Gio Mac MD Attending Provider at Discharge: Gio Luther MD Primary Care Provider: Adrian Irvin MD Diagnoses at Discharge Discharge Diagnosis (1) Uterovaginal prolapse, complete: Status: Acute Reason for Visit Reason for Visit: Complete uterovaginal prolapse Hospital Course Hospital Course Patient is a 65-year-old 3, para 2-0-1-2 who is postmenopausal. She presented to the office with prolapse symptoms. She has been noticing a ball protruding from the vaginal area. She has difficulty emptying her bladder and has to push up on the prolapse to assist with emptying. On exam, she was found to have 3rd-4th degree uterine prolapse with 3rd-4th degree cystocele and high rectocele. Treatment options were discussed with her and she wanted to proceed with hysterectomy and closure procedure. Patient will was admitted to the hospital and had a total vaginal hysterectomy with colpocleisis performed. She did well following the surgery. By late afternoon, she was still feeling nauseated. She had lightheadedness with ambulation. As a result, decision was made for her to spend the night. Postoperative Day 1 Patient reports doing much better this morning. Her pain is controlled with oral medications. She is ambulating without lightheadedness or dizziness. She denied any shortness of breath or chest pains. She is tolerating a regular diet without nausea or vomiting. She is passing flatus. Physical exam: See below Plan Schmidt catheter was removed this morning. She has had very low voided volumes with high postvoid residuals (>200 mL). This is not completely unexpected due to her degree of prolapse. I discussed with her the options of being hot and performing self-catheterization after she goes home or having Schmidt catheter reinserted and going home with that. She decided that she wanted to have a Schmidt catheter reinserted at this time. Discharge to home with Schmidt catheter. Discharge instructions were discussed with the patient. She is to follow-up in the office on Saturday, 08/22, for catheter removal. Physical Exam Const: COMMON NORMALS: no acute distress, average body habitus, alert and well nourished GENERAL APPEARANCE: well developed ORIENTATION/CONSCIOUSNESS: Yes oriented to person, Yes oriented to place and Yes oriented to time Resp: COMMON NORMALS: normal respiratory effort and clear to auscultation bilaterally AUSCULTATION: clear to auscultation bilaterally Cardio: COMMON NORMALS: regular rate, regular rhythm, No gallops present (Cardio), No murmurs present (Cardio) and No rub (Cardio) RATE: regular rate RHYTHM: regular rhythm GI: COMMON NORMALS: Soft to palpation, No hepatosplenomegaly present and no masses AUSCULTATION: Yes normoactive bowel sounds PALPATION: Yes Soft to palpation, Yes Tenderness to palpation present (GI) (Mild suprapubic tenderness), Yes No hepatosplenomegaly present and No Hernia present : EXTERNAL FEMALE EXAM: No Hernia present Extremity: COMMON NORMALS: no clubbing, cyanosis or edema and no calf tenderness Neuro: SENSORIUM/ORIENTATION: Yes alert, Yes oriented to person, Yes oriented to place and Yes oriented to time Psych: COMMON NORMALS: normal affect MOOD & AFFECT: Yes euthymic mood Urinary Catheter Management^: Schmidt: Cath Placed During This Visit: yes, but has since been removed by the nurse Reason for Continuing Indwelling Catheter: Perioperative Use in Selected Surgeries Urinary Catheter Date of Insertion: 08/16/20 Urinary Catheter Time of Insertion: 07:25 Date Urinary Catheter Removed: 08/17/20 Time Urinary Catheter Discontinued: 07:45 Discharge Data Data Completed and Pending: Pending at discharge Category Date Time Status Pathology: Surgic al [PTH] Routine Pth 08/16/20 08:56 Received Labs from last 24 hours 08/17/20 05:22 WBC 11.3 H RBC 3.49 L Hgb 11.7 Hct 34.6 L MCV 99.1 H MCH 33.5 MCHC 33.8 RDW 12.1 Plt Count 273 MPV 8.8 Vitals: Last Vital Signs Temp 98.5 F 08/17/20 07:15 Pulse 94 08/17/20 07:15 Resp 16 08/17/20 07:15 BP 146/85 08/17/20 07:15 Pulse Ox 95 08/17/20 07:15 Discharge Plan Discharge Patient Disposition: Home Condition: Stable Prescriptions: New tramadol 50 mg Tablet 50 - 100 mg PO Q6H PRN (Reason: Moderate To Severe Pain) Qty: 20 RF: 0 Continued ibuprofen 200 mg capsule 200 mg PO Q6H PRN (Reason: Pain) RF: 0 Discharge Orders: Discharge Order (Routine); Ordered 08/17/20 Ordered By: Gio Luther Referrals: Gio Luther MD [Physician] - (Catheter removal on Saturday, 08/22 at 10:15 at my office Postoperative appointment on 08/29/2020 at 08:45) Discharge Diet: Regular Discharge Activity: Limit activity as instructed Patient Instructions: OB Abdominal Surgery - [facility] Discharge Attestations Time Spent in Discharge Care*: less than 30 min Quality Metrics Clinical Quality Measures During this hospital stay, did patient experience: None Coding Level of Care Code Acute General Worker for Chg Fwd Diagnoses Uterovaginal prolapse, complete N81.3
--- NOTE | 2020-08-17 09:28 | PC.NURSE ---
0835 PATIENT VOIDED APPROXIMATELY 50MLS AND BLADDER SCAN DONE AND IT SHOWED 200ML STILL IN.
--- NOTE | 2020-08-17 09:30 | PC.NURSE ---
0881 DR/ BASSEM HERE AND AWARE OF RESIDUAL VOID AMOUNTS. INTO SEE PATIENT.
--- NOTE | 2020-08-17 09:30 | PC.NURSE ---
1292 PT WANTED TO TRY AND VOID AGAIN. PATIENT VOIDED MAYBE 100 AND BLADDER SCANNED AND THERE WAS APPROXIMATELY 300MLS LEFT SO KHAN CATHETER WAS PLACED WITHOUT DIFFICULTY AND THEN IV WAS REMOVED WITH CATH INTACT AND PT'S DAUGHTER CALLED AND SHE STATED THAT SHE WOULD BE HERE IN 30-45 MINUTES TOLD HER THAT IT WAS NO HURRY THAT WE WOULD TAKE CARE OF HER UNTIL GETS HERE.
[2020-08-17 09:33] VITALS: BP 146/85; PULSE 94; RESP 16; TEMP 36.9; O2SAT 95
--- NOTE | 2020-08-17 09:57 | PC.NURSE ---
EVENT REPORT MADE ABOUT PT LOSING A TOOTH YESTERDAY IN SURGERY.
[2020-08-17 10:00] VITALS: BP 174/88; PULSE 92; RESP 18; TEMP 36.9; O2SAT 97
[2020-08-17 10:35] VITALS: BP 158/88; PULSE 93; RESP 18; TEMP 36.8
== END 2020-08-17 10:40 | disposition home or self-care (01) ==
LOC: OR 06:02 → OBGYN 09:48
PROVIDERS: PCP Family Medicine; Visit Provider Obstetrics & Gynecology
PROC: (CPT 57120; principal; 2020-08-16 07:00)
PROC: (CPT 57120; 2020-08-16 07:00)
DX: N81.3 Complete uterovaginal prolapse (principal); J43.9 Emphysema, unspecified; F17.210 Nicotine dependence, cigarettes, uncomplicated
CPT/HCPCS: 57120; 58262; 12345; 36415; 85025; 85027; 87086; 88305; 96365; 96374; J0131; J0690; J1100; J1170; J1885; J2704; J3010; J3490; J7030

== ENCOUNTER → 2021-11-28 10:49 | Outpatient (BNVA) | payer MEDICARE, SELFPAY | PROVIDERS: PCP Family Medicine; Visit Provider Family Medicine | DX: M54.30 Sciatica, unspecified side (principal); R60.9 Edema, unspecified; I10 Essential (primary) hypertension; M54.9 Dorsalgia, unspecified; G89.29 Other chronic pain | CPT/HCPCS: 80053; 83880; 84443; 85025 ==

== ENCOUNTER 2021-12-14 06:58 | Outpatient (CLI) | payer MEDICARE, SELFPAY ==
--- NOTE | 2021-12-14 07:15 | MR_ITS ---
WS: [id number] MRI LUMBAR SPINE NONCONTRAST HISTORY: SCIATICA, EDEMA, ESSENTIAL HYPERTENSION, BACK PAIN COMPARISON: 12/04/2005 TECHNIQUE: Sagittal and axial multisequence imaging is submitted. Disc and osteophyte disease is mild throughout the cervical spine. Increase in thoracic kyphosis. L2 retrolisthesis by less than 2 mm. There is a very small amount of reactive marrow edema along the L5-S1 endplates greatest to the RIGHT. No fracture. Very minimal disc desiccation throughout. Most significant at L2-3. Conus terminates normally at L1. L1-L2: Mild bilateral facet arthritis. No stenosis. L2-L3: Mild annular disc bulge with a central shallow disc protrusion. Moderate ligamentum flavum dis ease and facet arthritis. Mild central and bilateral subarticular recess and foraminal stenosis. Ther e is mild disc contact upon the traversing L3 nerve roots. L3-L4: Diffuse annular disc bulge with marked ligamentum flavum and facet arthritis encroaching into the thecal sac and subarticular recesses. Mild central, bilateral subarticular recess and foraminal s tenosis. L4-L5: Diffuse annular disc bulge with mild ligamentum flavum and facet arthritis encroaching towards the thecal sac. There is a small extruded disc extending to the LEFT in the subarticular recess. Ext ruded disc with mild contact on the L5 nerve root. RIGHT hemilaminectomy defect. Disc and osteophyte encroachment into the foramen. Moderate RIGHT and mild LEFT foraminal stenosis. L5-S1: Marked annular disc bulging with contact on the ventral thecal sac. There does appear to be a RIGHT hemilaminectomy defect. Facet and ligamentum flavum arthritis encroaching into the subarticular recesses and also the foramen. There is increased soft tissue in the RIGHT subarticular recess abutt ing the S1 nerve root. Complete effacement of fat in the RIGHT foramen. On the sagittal projection th ere is increased soft tissue similar signal to the disc and contiguous which extends caudad from the disc line. This extends into the RIGHT subarticular recess and is highly suspicious for an extruded d isc. Disc extends over a length of 11 mm x 7 mm transversely. This is causing significant encroachmen t upon the RIGHT S1 nerve root displacement. The S1 nerve root is also enlarged. Smaller LEFT foraminal disc protrusion causes minimal contact on the exiting LEFT L5 nerve root. Paravertebral soft tissues are normal. MR/MR lumbar spine wo con* [id number] IMPRESSION: 1. Status post bilateral RIGHT hemilaminectomy defects at L4-5 and L5-S1. 2. Increased soft tissue in the RIGHT subarticular recess and RIGHT foramen at L5-S1. There is increased soft tissue measuring 11 x 7 mm extending into the s ubarticular recess and causing contact and displacement of the RIGHT S1 nerve r oot. There is also severe RIGHT foraminal stenosis at L5-S1. Favor these change s are all due to disc extrusion. As there has been surgery at this level follow -up with contrast would probably be helpful to exclude scar tissue. 3. Smaller LEFT foraminal disc protrusion at L5-S1 with mild contact on the L5 nerve root. 4. Moderate RIGHT and mild LEFT foraminal stenosis at L4-5. 5. Mild central, bilateral subarticular recess and foraminal stenosis at L2-3 and L3-4. 6. Mild disc contact on the traversing L3 nerve roots. 7. Small disc extrusion LEFT subarticular recess at L4-5 with minimal contact on the L5 nerve root.
== END 2021-12-14 06:59 | disposition home or self-care (01) ==
PROVIDERS: PCP Family Medicine; Visit Provider Family Medicine
DX: M54.30 Sciatica, unspecified side (principal); M51.27 Other intervertebral disc displacement, lumbosacral region; M51.26 Other intervertebral disc displacement, lumbar region; M48.061 Spinal stenosis, lumbar region without neurogenic claudication
CPT/HCPCS: 72148

== ENCOUNTER 2021-12-18 07:00 | Outpatient (CLI) | payer MEDICARE, SELFPAY ==
--- NOTE | 2021-12-18 07:19 | USCV_ITS ---
Lisseth Puente Age: 66 Gender: F : 1955 Exam Date: 12/18/2021 07:35 Ordering Phys: Adrian Irvin MD Technologist: ELEAZAR Exam Location: [facility] [place] Indication: chf BP: 140 / 82 HR: 76 Rhythm: Sinus Technical Quality: Adequate MEASUREMENTS (Male / Female) Normal Values 2D ECHO LV Diastolic Diameter PLAX 5.0 cm 4.2 - 5.9 / 3.9 - 5.3 cm LV Systolic Diameter PLAX 3.7 cm IVS Diastolic Thickness 0.9 cm 0.6 - 1.0 / 0.6 - 0.9 cm IVS Systolic Thickness 1.3 cm LVPW Diastolic Thickness 0.8 cm 0.6 - 1.0 / 0.6 - 0.9 cm LVPW Systolic Thickness 1.3 cm LVOT Diameter 2.0 cm LV Ejection Fraction 2D Teich 51.5 % LV Ejection Fraction MOD 2C 51.6 % LV Ejection Fraction 2C AL 51.9 % LA Diameter 3.0 cm LA Width 2.6 cm LA Height 3.5 cm RA Width 2.5 cm RA Height 2.9 cm Aorta at Sinotubular Diameter 2.3 cm IVC Diameter 1.2 cm M-MODE Aortic Annulus Diameter 2.6 cm LA Ao Ratio MM 1.1 MV E Point Septal Separation 1.1 cm DOPPLER AV Peak Velocity 139.0 cm/s LVOT Peak Velocity 75.0 cm/s AV Area Cont Eq vti 2.0 cm squared AV Area Cont Eq pk 1.7 cm squared MV Peak Velocity 141.0 cm/s MV Area PHT 4.4 cm squared Mitral E to A Ratio 0.4 MV E' Velocity 44.0 cm/s TR Peak Velocity 256.8 cm/s TR Peak Gradient 26.4 mmHg TR Mean Velocity 194.0 cm/s TR Mean Gradient 17.0 mmHg TR Velocity Time Integral 73.6 cm Right Atrial Pressure 3.0 mmHg Pulmonary Artery Systolic Pressu 29.4 mmHg PV Peak Velocity 72.0 cm/s RV Acceleration Time 0.1 s RV Ejection Time 0.3 s RV AcT/ET 0.3 FINDINGS Left Ventricle Normal left ventricular size and systolic function, EF 55 %. Mild concentric left ventricle hypertrophy.no regional wall motion abnormalities. Grade I/IV diastolic dysfunction (abnormal relaxation filling pattern), normal to mildly elevated filling pressures. Right Ventricle Normal right ventricular size. Normal right ventricular systolic function. Right Atrium The right atrium is normal in size. Left Atrium Mildly increased left atrial size. Mitral Valve Thickened mitral valve. Moderate mitral annular calcification. Mild mitral valve regurgitation. Aortic Valve Thickened aortic valve. Mild aortic valve regurgitation. Tricuspid Valve Trace tricuspid valve regurgitation. Pulmonic Valve No gross abnormalities noted Pericardium Normal pericardium without effusion. Aorta Normal ascending aorta dimension. IVC Normal IVC dimension CONCLUSIONS Normal left ventricular size and systolic function, EF 55 %. Mild concentric left ventricle hypertrophy.no regional wall motion abnormalities. Grade I/IV diastolic dysfunction (abnormal relaxation filling pattern), normal to mildly elevated filling pressures. Mildly increased left atrial size. Thickened mitral valve. Moderate mitral annular calcification. Mild mitral valve regurgitation. Thickened aortic valve. Mild aortic valve regurgitation. Trace tricuspid valve regurgitation. Estimated pulmonary artery peak systolic pressure of 29 mmHg. There is no pericardial effusion. There are no intracardiac masses. No previous study is available for comparison. Dr Bryan Bullard MD FACC (Electronically Signed) Final Date: 18 Dec 2021 17:37 S
== END 2021-12-18 07:01 | disposition home or self-care (01) ==
LOC: RAD 07:02
PROVIDERS: PCP Family Medicine; Visit Provider Family Medicine
DX: I09.89 Other specified rheumatic heart diseases (principal); I50.9 Heart failure, unspecified; I08.0 Rheumatic disorders of both mitral and aortic valves
CPT/HCPCS: 93306

== ENCOUNTER → 2021-12-20 14:38 | Outpatient (BNVA) | payer MEDICARE, SELFPAY | PROVIDERS: PCP Family Medicine; Visit Provider Family Medicine | DX: L98.9 Disorder of the skin and subcutaneous tissue, unspecified (principal) | CPT/HCPCS: 88304 ==

== ENCOUNTER → 2021-12-27 10:43 | Outpatient (BNVA) | payer MEDICARE, SELFPAY | PROVIDERS: PCP Family Medicine; Visit Provider Family Medicine | DX: L98.9 Disorder of the skin and subcutaneous tissue, unspecified (principal) | CPT/HCPCS: 88304 ==

== ENCOUNTER → 2022-01-04 10:01 | Outpatient (BNVA) | payer MEDICARE, SELFPAY | PROVIDERS: PCP Family Medicine; Referring Provider Family Medicine; Visit Provider Orthopaedic Surgery | DX: M48.062 Spinal stenosis, lumbar region with neurogenic claudication (principal); M51.27 Other intervertebral disc displacement, lumbosacral region | CPT/HCPCS: 72100; 99204 ==

== ENCOUNTER 2022-02-05 05:50 | Day surgery (SDC) | payer MEDICARE, SELFPAY ==
[2022-02-02 08:16] VITALS: BMI 30.1
--- NOTE | 2022-02-02 08:25 | ECG_ITS ---
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 Measurements Intervals Ina Rate: 85 P: 44 CT: 142 QRS: 33 QRSD: 95 T: 50 QT: 354 QTc: 422 Interpretive Statements SINUS RHYTHM POSSIBLE LEFT ATRIAL ENLARGEMENT [-0.1mV P-WAVE IN V1/V2] POSSIBLE RIGHT VENTRICULAR CONDUCTION DELAY [RSR (QR) IN V1/V2] Compared to ECG 06/03/2020 04:39:31 No significant changes Electronically Signed On 02-02-2022 18:22:22 CDT by Eugene Figueroa M.D. [id number]
[2022-02-02 08:44] LABS: Basophils # 0.1 10^3/uL (0.0-0.1); Basophils % 0.8 %; Eosinophils # 0.1 10^3/uL (0.0-0.8); Eosinophils % 1.3 %; Hematocrit 41.3 % (37.0-47.0); Hemoglobin 14.3 g/dL (11.5-15.3); Lymphocytes # 3.2 10^3/uL (0.8-4.8); Lymphocytes % 40.7 %; Mean Corpuscular HGB Conc 34.6 g/dL (30.0-36.0); Mean Corpuscular Volume 95.4 fl (81-99); Mean Platelet Volume 8.6 fL (7.4-10.4); Monocytes # 0.7 10^3/uL (0.2-0.9); Monocytes % 8.7 %; Neutrophils # 3.83 10^3/uL (1.8-7.7); Neutrophils % 48.2 %; Nucleated Red Blood Cells % 0 %; Platelet Count 337 10^3/cmm (130-400); Red Blood Count 4.33 10^6/uL (4.1-5.3); Red Cell Distribution Width 12.5 % (12.1-15.1); White Blood Count 7.9 10^3/uL (4.0-10.0)
[2022-02-02 09:01] LABS: Anion Gap 18.1 (5-19); Blood Urea Nitrogen 16 mg/dL (8-23); Calcium 10.1 mg/dL (8.5-10.5); Carbon Dioxide 24 mmol/L (22-29); Chloride 101 mmol/L (98-107); Glomerular Filtration Rate 62.3 mL/min (90-130); Glucose 156 mg/dL (65-115); Osmolality Calculated 292 mOsm/kg (285-295); Potassium 4.1 mmol/L (3.5-5.1); Sodium 139 mmol/L (136-145)
--- NOTE | 2022-02-02 12:21 | P.ANESASSM_ITS ---
Pre-Anesthetic Assessment Height/Weight: Height 1.47 m Weight 65.317 kg Preop Diagnosis: Complete uterovaginal prolapse Operation Date: 02/05/22 07:00 Proposed Procedures p Lumbar Spine Decompression REVISION MIN INVASIVE 84979 M48.062 L5/S1(Not Applicable) - Khanh Montero DO Familial anesthetic complications: None, she has had delayed awakening issues Was Beta Radha taken within 24 hours: N/A Was Clonidine taken within 24 hours: N/A Social No alcohol and No tobacco (h/o smoking) Exam alert, oriented x 3 and regular rate & rhythm Airway Submandibular: within normal limits Cervical ROM: within normal limits Mallampati: Class II Dentition: chipped Comments: Comments: Poor dentition, hoarseness Pulmonary Chronic Obstructive Pulmonary Disease [facility] [place]/skel Lower Back Pain Anesthetic Plan ASA status: 3 Anesthesia: General Medications/Allergies Home Medications Medication Instructions Recorded Confirmed Last Taken Type docusate sodium 100 mg capsule 100 mg PO BID 08/29/20 02/02/22 Unknown History hydrochlorothiazide 25 mg tablet 25 mg PO DAILY 01/04/22 02/02/22 Unknown Histor y hydrocodone 5 mg-acetaminophen 325 1 tab PO BID PRN 01/04/22 02/02/22 Unknown History mg tablet spironolactone 25 mg tablet 50 mg PO DAILY 01/04/22 02/02/22 Unknown History multivitamin 1 tab PO DAILY 02/02/22 02/02/22 Unknown History Allergies Allergy/AdvReac Type Severity Reaction Status Date / Time No Known Allergies Allergy Verified 02/02/22 08:13 [facility] Anesthesia Medical History Back pain Centrilobular emphysema Gout Orthostatic hypotension Vasovagal syncope Surgical History H/O total vaginal hysterectomy (08/16/20) With colpocleisis. Performed by Dr. Luther at [facility] in [place], [place] History of back surgery (~2005) Lumbar History of salpingectomy (~1971) Open procedure for treatment of ectopic S/P tonsillectomy Family History Father CAD (coronary artery disease) Mother Hypertension Sister Hypertension Social History Smoking and tobacco status: former smoker Quit status (tobacco): has quit using tobacco Year quit tobacco: 07/2020 Former quit date comment: Most smoked numeral 2 PPD. Started age 51. Alcohol intake: never Data Anesthesia : 02/02/22 08:35 02/02/22 08:35 Short CBC 02/02/22 Range/Units 08:35 WBC 7.9 (4.0-10.0) 10^3/uL Hgb 14.3 (11.5-15.3) g/dL Hct 41.3 (37.0-47.0) % MCV 95.4 (81-99) fl Plt Count 337 (130-400) 10^3/cmm Neut % (Auto) 48.2 % Neut # (Auto) 3.83 (1.8-7.7) 10^3/uL BMP 02/02/22 08:35 Sodium 139 Potassium 4.1 Chloride 101 Carbon Dioxide 24 BUN 16 Creatinine 0.9 Glucose 156 H Calcium 10.1 Cardiac Studies: Echocardiogram 12/18/21
--- NOTE | 2022-02-05 | SCC_ITS ---
Procedure done: 1. Revision laminectomy with partial facetectomy L5/S1 9.0 seconds of fluoroscopic guidance, for a cumulative dose of 2.26 mGy, was provided to Dr. Montero by the radiology department. C-arm images of the lumbar spine were saved for the patient's permanent record. [facility]
--- NOTE | 2022-02-05 | XR_ITS ---
WS: [id number] C-ARM RADIOGRAPHS LUMBAR SPINE; 4 IMAGES HISTORY: right sided lumbar decompression COMPARISON: None available. Intraoperative imaging during RIGHT sided decompression. Marker is at the L5-S1 level. XR/XR lumbar spine 1V port [id number] IMPRESSION: Intraoperative imaging lumbar spine at the L5-S1 level.
[2022-02-05 06:09] VITALS: BP 173/93; PULSE 100; RESP 18; TEMP 36.8; O2SAT 97
[2022-02-05] MEDS: sodium chloride 0.9% 1,000 ML 30 ML IV (06:39)
--- NOTE | 2022-02-05 06:40 | P.ANESUD_ITS ---
Pre-Anesthetic Update Pre-Anesthetic Assessment: Date of Surgery/Procedure: 02/05/22 Preop Carlota gnosis: Lumbar stenosis with neurogenic claudication Proposed Procedure: Operation Date: 02/05/22 07:00 Proposed Procedures p Lumbar Spine Decompression Rt Sided 28408 M48.062 L5/S1(Not Applicable) - Khanh Montero, DO Any changes to Pre-Anesthetic Assessment?: No Last Intake: Intake Last Liquid Date 02/04/22 Last Liquid Time 23:00 Last Solid Date 02/04/22 Last Solid Time 18:00 Vitals: Temperature 98.3 F 02/05/22 06:09 Temperature Source Temporal Artery S can 02/05/22 06:09 Pulse Rate 100 02/05/22 06:09 Respiratory Rate 18 02/05/22 06:09 Blood Pressure 173/93 02/05/22 06:09 Blood Pressure Tigist n 119 02/05/22 06:09 Pulse Oximetry 97 02/05/22 06:09 Oxygen Delivery Me thod 02/05/22 06:11 Exam: Pre-Anes Outpt Exam: alert, oriented x 3, clear to auscultation bilaterally and regular rate & rhythm Cardiac Studies: Echocardiogram 12/18/21
--- NOTE | 2022-02-05 06:52 | P.HP_ITS ---
Providers/Chief Complaint Primary Care Provider: Adrian Irvin MD Chief Complaint: revision min invasive decompression 61172 m48.062 History of Present Illness Lisseth Puente is a 66 year old female She rates her pain 04/07 at todays visit. She recently received an MRI and is here today to go over results and further treatment plan. Chief Complaint:lower back pain Onset: a year ago, previous back sx in 2004 Duration:constant Characteristics:sharp, stabbing, aching Severity: 10 Location: lower back Radiating symptoms: radiates into right leg Aggravating factors: walking, bending, standing, sitting. Alleviating factors: muscle cream Neuro deficits: reports numbness, tingling, weakness. Denies incontinence of bowel/bladder, saddle anesthesia. Prior tx: physical therapy, injections Previous lumbar L5/S1 discectomy by Dr. Quiroz in 2004. Review of Systems General: Reports: 10 or more systems reviewed and unremarkable except in HPI and below Const: Denies: fever(s) Eyes: Denies: eye discharge ENMT: Denies: throat pain Card: Denies: chest pain Resp: Denies: dyspnea GI: Denies: nausea or vomiting : Denies: urinary incontinence Musc: Reports: back pain Skin/Breast: Denies: rash Psych: Denies: anxiety Endo: Denies: polyuria Matt/Lymph: Denies: easy bruising All/Imm: Denies: facial swelling Medications/Allergies Home Medications Medication Instructions Recorded Confirmed Last Taken Type docusate sodium 100 mg capsule 100 mg PO BID 08/29/20 02/02/22 Unknown History hydrochlorothiazide 25 mg tablet 25 mg PO DAILY 01/04/22 02/05/22 02/04/22 History hydrocodone 5 mg-acetaminophen 325 1 tab PO BID PRN 01/04/22 02/02/22 Unknown History mg tablet spironolactone 25 mg tablet 50 mg PO DAILY 01/04/22 02/05/22 02/04/22 History multivitamin 1 tab PO DAILY 02/02/22 02/05/22 02/04/22 History Allergies Allergy/AdvReac Type Severity Reaction Status Date / Time No Known Allergies Allergy Verified 02/02/22 08:13 PFSH Acute PFSH: Medical History Back pain Centrilobular emphysema Gout Orthostatic hypotension Vasovagal syncope Surgical History H/O total vaginal hysterectomy (08/16/20) With colpocleisis. Performed by Dr. Luther at [facility] in [place], [place] History of back surgery (~2005) Lumbar History of salpingectomy (~1971) Open procedure for treatment of ectopic S/P tonsillectomy Family History Father CAD (coronary artery disease) Mother Hypertension Sister Hypertension Social History Smoking and tobacco status: former smoker Quit status (tobacco): has quit using tobacco Year quit tobacco: 07/2020 Former quit date comment: Most smoked numeral 2 PPD. Started age 51. Alcohol intake: never Vitals/I&O/Wt Last Vital Signs Temp 98.3 F 02/05/22 06:09 Pulse 100 02/05/22 06:09 Resp 18 02/05/22 06:09 BP 173/93 02/05/22 06:09 Pulse Ox 97 02/05/22 06:09 Physical Exam Narrative: CONSTITUTIONAL: The patient is a normal appearing [] in no apparent distress. GENERAL: Patient in no acute distress. CARDIAC: Regular rate and rhythm. CHEST: Normal inspiratory effort, normal respiratory rate. ABDOMEN: Soft and nontender. SKIN: Clear, warm and intact. NEURO?PSYCH: The patient is alert and oriented to person, place and time. Sensorv /SILT Motor StrengthShoulder abduction C5 5/5Wrist extension C6 5/5Elbow extension C7 5/5Hand Storage Facility Rental Clerk C8 5/5Finger abduction T15/5 Radial/ Ulnar/ Median n intact LowerSensory (SILT)Motor StrengthHin flexion L2/3Ant/inner thigh 5/5Hip adduction L2/3 5/5Knee extension L4 Lat thigh, 5/5Toe dorsiflexion L5 5/5Ankle dorsiflexion L5/ L27Nttnuvx flexion S1 5/5 DTRBleeps 2+Triceps 2+Brachioradialis 2+Patellar 2+Achilles 2+ MUSCULOSKELETAL: [] UPPEREXTREMITIES: The patient had full active ROM in fingers, wrist, elbow, and shoulder. The patient demonstrated ability to fully flex/e xtend/abduct/adduct fingers, make ok sign, cross 2nd/3rd digits, extend 1st digit fully.. Radial pulse 2+, CR<2 seconds. LOWER EXTREMITIES: Pt has full, active ROM of toes, ankle, knee, and hip. Dorsa lis pedis/posterior tibialis pulses 2+, CR<2 seconds. SPINE: Skin warm, dry, intac Data : 02/02/22 08:35 02/02/22 08:35 A&P Assessment and plan (1) Lumbar stenosis with neurogenic claudication: revision Right L5/S1 decompression Status: Acute Attestations Medical Necessity Statement*: failed conservative tx Coding Level of Care Code Acute Filer Repairer for [facility] Fwd Diagnoses Lumbar stenosis with neurogenic claudication M48.062
[2022-02-05 08:00] VITALS: BP 169/96; PULSE 99; RESP 16; TEMP 36.3; O2SAT 98
[2022-02-05 08:05] VITALS: BP 159/96; PULSE 95; RESP 17; O2SAT 100
--- NOTE | 2022-02-05 08:06 | SUR.PHASEI ---
0759 PT TO PACU 5 PT AWAKES, ORAL AIRWAY OUT, PT WITH GOOD RESP EFFORT, VSS MONITO ST TO SR NO ECTOPY NOTED, PT PLACED ON 8L MASK, SATS UP TO 100% QUICKLY, PT ID BRACELET TO LT WRIST, PT ID'D WITH 2 IDENTIFERS, IV TO RT FOREARM #20 JELCO PATENT WITH NS 500ML UP AT KVO RATE PER GRAVITY, BILATERAL SCDS ON . PT AWAKES TO VOICE, PT VERBALLY DENIES PAIN AND NAUSEA.
[2022-02-05 08:10] VITALS: BP 163/90; PULSE 91; RESP 16; TEMP 36.3; O2SAT 99
--- NOTE | 2022-02-05 08:14 | PM.OP ---
Operative Report Date of procedure: February 05, 2022 Pre-op diagnosis: Preop Diagnosis Lumbar stenosis with neurogenic claudication Post-op diagnosis: same Procedure done: 1. Revision laminectomy with partial facetectomy L5/S1 Surgeon: Khanh Montero Supply And Distribution Manager: Zenon Fowler Supply And Distribution Manager: The neurosurgical nurse practitioner, Zenon Fowler, ANSELMO was needed for his expertise under the microscope. He was important and necessary throughout the procedure to complete in a safe and timely manner. He assisted with patient positioning prepping and draping tissue retraction suctioning of the operative field protection of the dural sac and tissue closure Estimated blood loss (mL): 5 Procedure: 1. Revision laminectomy with partial facetectomy L5/S1 Patient is brought to the operative suite. After undergoing anesthesia they are placed in the prone position. All areas of impingement are well padded. Patient is then prepped and draped in the normal sterile fashion. A skin incision is made over the L5/S1 level using part of previous incision. This is confirmed under c-arm guidance. A series of dilators are passed and the tubular retractor is docked on the L5 lamina. A bovie is used to clear the soft tissue and scar off the lamina and the L 5/S1 facet joint. A high speed kacie is then used to perform the laminectomy and take down the medial aspect of the L 5/S1 facet joint. A curved curette was used to delineate a line between the scar tissue and the bone. A kerrison rongeure was then used to take down the remaining lamina and smooth the edge of the laminectomy up to the point where the ligamentum flavum attaches. Attention was then brought to the medial aspect of the facet joint. The remaining medial aspect of the superior and inferior aspect of the facet joint were taken down with the kerrison from the pedicle of L5 to S1. The facet joint had significant hypertrophy. Attention was then brought to the Ligamentum Flavum. The ligament was taken down from the lamina of L5 to S1 and out medially to the remaining facet joint. The ligament was scarred. The dura was then exposed. The dura was in good repair. The L5 nerve was then traced with a curette out the L5/S1 foramen and found to be adequately decompressed. The S1 nerve was traced with a curette around the S1 pedicle. The lateral recess was opened with a kerrison helping to further decompress the S1 nerve. Wound is then irrigated copiously with saline and surgiflo is used to stop any bleeding. The tubular retractor is removed and the wound is closed with vicryl and monocryl suture. Glue is then used to protect the wound. A sterile dressing is then placed. Patient was then placed in the supine position and transferred to the PACU in stable condition.
[2022-02-05 08:22] VITALS: BP 168/99; PULSE 84; RESP 16; TEMP 36.3; O2SAT 99
--- NOTE | 2022-02-05 08:36 | SUR.PHASEI ---
0816 PT AWAKE ALERT MOVES ALL EXTREMITIES TO COMMAND, STRONG BILAT DORSAL FLEXATION AND EXTENSION NOTED DRESSING TO LOWER BACK D/I PT LOG ROLLS PER SELF, PT TO OPS 3 HANDOFF AT BEDSIDE TO SUSAN STUBBS.
[2022-02-05 08:45] VITALS: BP 177/100; PULSE 98; RESP 16; TEMP 36.3; O2SAT 99
[2022-02-05] MEDS: HYDROcodone-acetaminophen 5-325 mg Tablet 1 TAB PO (08:49)
--- NOTE | 2022-02-05 13:58 | ANE.PACU2 ---
Inpatient post-anesthesia follow up: Airway intact: Yes Vital signs: Temperature 97.4 F Pulse Rate 98 Respiratory Rate 16 Blood Pressure 177/100 Pulse Oximetry 99 Oxygen Delivery Me thod Room Air Oxygen Flow Rate 8 Fraction of Inspir ed Oxygen Hydration adequate: Yes Nausea and vomiting: No Pain level: 3 Mental status: Baseline Additional Comments: BP at patient's pre op baseline
== END 2022-02-05 09:05 | disposition home or self-care (01) ==
PROVIDERS: Anesthesiology; PCP Family Medicine; Visit Provider Orthopaedic Surgery
PROC: (CPT 63005; principal; 2022-02-05 07:00)
DX: M48.062 Spinal stenosis, lumbar region with neurogenic claudication (principal); J44.9 Chronic obstructive pulmonary disease, unspecified; Z87.891 Personal history of nicotine dependence
CPT/HCPCS: 63047; 72020; 76000; 80048; 85025; 93005; J0690; J1100; J2405; J2704; J2710; J3010; J3490; J7030

== ENCOUNTER → 2022-02-20 13:48 | Outpatient (BNVA) | payer MEDICARE, SELFPAY | PROVIDERS: PCP Family Medicine; Visit Provider Orthopaedic Surgery | DX: Z47.89 Encounter for other orthopedic aftercare (principal); Z98.890 Other specified postprocedural states | CPT/HCPCS: 99024 ==

== ENCOUNTER → 2022-03-20 13:49 | Outpatient (BNVA) | payer MEDICARE, SELFPAY | PROVIDERS: PCP Family Medicine; Visit Provider Orthopaedic Surgery | DX: Z47.89 Encounter for other orthopedic aftercare (principal) | CPT/HCPCS: 99024 ==

== ENCOUNTER → 2022-04-24 12:55 | Outpatient (BNVA) | payer MEDICARE, SELFPAY | PROVIDERS: PCP Family Medicine; Visit Provider Orthopaedic Surgery | DX: Z47.89 Encounter for other orthopedic aftercare (principal) | CPT/HCPCS: 99024 ==

== ENCOUNTER 2024-06-29 14:25 | Outpatient (CLI) | payer OTHER, SELFPAY ==
--- NOTE | 2024-06-29 14:30 | MR_ITS ---
WS: [id number] MRI LUMBAR SPINE NONCONTRAST HISTORY: worsening back pain COMPARISON: 12/14/2021 TECHNIQUE: Sagittal and axial multisequence imaging is submitted. Degenerative disc disease in the cervical spine encroaching upon the ventral cord most significant at C5-6. L2 retrolisthesis by 2 mm. No fracture. Mild marrow edema in the adjacent endplates of L5 and S1. Disc spaces are mildly desiccated and narrowed. Conus terminates normally at L1-2 disc level. L1-L2: Bilateral facet joint arthritis. No stenosis. L2-L3: Mild annular disc bulging with a shallow central disc protrusion. Moderate ligamentum flavum a nd facet arthritis. Mild central, bilateral subarticular recess and foraminal stenosis. Very minimal disc contact on the traversing L3 nerve roots. L3-L4: Diffuse annular disc bulge with marked ligamentum flavum and facet arthritis. Moderate central with bilateral subarticular recess and minimal foraminal narrowing. Mild progression of central sten osis and ligamentum flavum arthritis. L4-L5: Mild annular disc bulging with moderate LEFT ligamentum flavum hypertrophy. Disc contacts the traversing L5 nerve roots. RIGHT hemilaminectomy defect with debridement of the RIGHT ligamentum flav um. Mild LEFT and moderate RIGHT foraminal stenosis. There is slight disc contact on the exiting RIGH T L4 nerve root. Similar to the prior study. L5-S1: Mild annular disc bulge with a new LEFT paracentral disc protrusion contacting the LEFT S1 ner ve root. Small disc protrusion contacts the RIGHT S1 nerve root. Very slight enlargement of the RIGHT S1 nerve root in the subarticular recess. Moderate RIGHT and mild LEFT foraminal stenosis. Paravertebral soft tissues are negative. MR/MR lumbar spine wo con* [id number] IMPRESSION: 1. No acute lumbar spine fracture. 2. Small RIGHT hemilaminectomy defects at L4-5 and L5-S1. 3. L2-3: Shallow central disc protrusion with mild contact on the traversing L 3 nerve roots. Mild central, bilateral subarticular recess and foraminal stenos is. 4. L3-4: Moderate central with bilateral subarticular recess and minimal alfredo inal stenosis. Mild progression of central stenosis. 5. L4-5: Moderate RIGHT and mild LEFT foraminal stenosis. There is mild disc c ontact on the exiting RIGHT L4 nerve root. 6. L5-S1: New LEFT paracentral disc protrusion contacts the LEFT S1 nerve root . Moderate RIGHT and mild LEFT foraminal stenosis. Disc protrusions and facet a rthritis.
== END 2024-06-29 14:26 | disposition home or self-care (01) ==
LOC: RAD 14:28
PROVIDERS: PCP Family Medicine; Visit Provider Family Medicine
DX: M48.062 Spinal stenosis, lumbar region with neurogenic claudication (principal); M50.322 Other cervical disc degeneration at C5-C6 level; M43.16 Spondylolisthesis, lumbar region; M51.360 Other intervertebral disc degeneration, lumbar region with discogenic back pain only; M99.63 Osseous and subluxation stenosis of intervertebral foramina of lumbar region; M51.26 Other intervertebral disc displacement, lumbar region
CPT/HCPCS: 72148

== ENCOUNTER → 2024-07-16 14:36 | Outpatient (BNVA) | payer OTHER, SELFPAY | PROVIDERS: PCP Family Medicine; Visit Provider Orthopaedic Surgery | DX: M54.9 Dorsalgia, unspecified (principal); M48.062 Spinal stenosis, lumbar region with neurogenic claudication | CPT/HCPCS: 72110 ==

== ENCOUNTER 2024-10-02 09:27 | Outpatient (RCR) | payer MEDICARE, SELFPAY | END 2024-10-21 13:41 | disposition home or self-care (01) | LOC: SPT 09:27 | PROVIDERS: Visit Provider Nurse Practitioner Family | DX: M48.062 Spinal stenosis, lumbar region with neurogenic claudication (principal) | CPT/HCPCS: 97110; 97161; G0283 ==

== ENCOUNTER → 2024-10-22 13:21 | Outpatient (BNVA) | payer MEDICARE, SELFPAY | PROVIDERS: Visit Provider Nurse Practitioner Family | DX: M48.062 Spinal stenosis, lumbar region with neurogenic claudication (principal); M47.816 Spondylosis without myelopathy or radiculopathy, lumbar region; Z87.891 Personal history of nicotine dependence | CPT/HCPCS: 99213 ==

== ENCOUNTER 2025-04-17 16:14 | Inpatient (IN) | payer MEDICARE, SELFPAY ==
[2025-04-17] VITALS (9 sets, daily range): BP systolic 127–163; BP diastolic 78–101; PULSE 86–99; RESP 14–18; TEMP 36.5–36.7; O2SAT 91–98
[2025-04-17 17:09] LABS: Hematocrit 40.1 % (36-47); Hemoglobin 13.90 g/dL (11.27-16.99); Mean Corpuscular HGB Conc 34.7 g/dL (30-55); Mean Corpuscular Hemoglobin 34.1 pg (27-33); Mean Corpuscular Volume 98.3 fl (85-98); Nucleated Red Blood Cells % 0 %; Platelet Count 337 10^3/cmm (157-399); Red Blood Count 4.08 10^6/uL (3.85-5.65); White Blood Count 8.47 10^3/uL (3.29-11.43)
--- NOTE | 2025-04-17 17:12 | XRR_ITS ---
PROCEDURE INFORMATION: Exam: XR Chest Exam date and time: 04/17/2025 5:31 PM Age: 69 years old Clinical indication: Shortness of breath TECHNIQUE: Imaging protocol: Radiologic exam of the chest. Views: 1 view. COMPARISON: CT angio chest w abd pel w con 06/03/2020 2:02 AM FINDINGS: Lungs: Unremarkable. No consolidation. Pleural spaces: Unremarkable. No pleural effusion. No pneumothorax. Heart/Mediastinum: Unremarkable. No cardiomegaly. Bones/joints: Unremarkable. Single-view. XR/XR chest 1V portable [id number] IMPRESSION: No acute findings.
--- NOTE | 2025-04-17 17:14 | ED_ITS ---
HPI - Weakness 2 General: Chief complaint: Weakness Stated complaint: Confused Falling Stroke like symptoms Time Seen by Provider: 04/17/25 16:25 History of Present Illness: Patient is a 69-year-old female that presents to ED with confusion. This started 3 nights ago. Patient thought it was 10 AM, and went to go wake up her nephew for work. She has continued with confusion. This morning, she called her nephew her son's name, and asked him about her son's childhood friend. She states that wall in the room is white, with yellow stripes as well as the blanket. She has some mild on and off shortness of breath. Associated symptoms: Gait instability and increase falls without injury the last 3 days. She denies any dysuria. Denies any previous issues with confusion. No history of CVA. She is not prophylactically on aspirin. She has a history of hypertension. Associated symptoms: Denies chest pain, chills, dysuria, easy bruising, fever(s), headache(s), nausea or vomiting Related Data Home Medications ?Medication ?Instructions ?Recorded ?Confirmed multivitamin 1 tab PO DAILY 02/02/2209/27 Previous Rx's ?Medication ?Instructions ?Recorded hydrochlorothiazide 25 mg tablet See Rx Instructions . Route 07/23/24 .COMPLEX #90 tabs cyclobenzaprine 7.5 mg tablet 5 mg (0.6667 x 7.5 mg) P O BID PRN 10/22/24 muscle spasm #60 tabs gabapentin 100 mg capsule 100 mg PO QID #120 caps 10/27 11/20 spironolactone 25 mg tablet See Rx Instructions .Route 03/08/25 .COMPLEX #180 tabs Allergies Allergy/AdvReac Type Severity Reaction Status Date / Time No Known Allergies Allergy Verified 10/22/24 13:25 Review of Systems 2 General: Reports: 10 or more systems reviewed and unremarkable except in HPI and below Const: Denies: fever(s), chills or body aches Eyes: Reports: blurry vision; Denies: change in vision, blind spots or photophobia Card: Denies: chest pain or dyspnea on exertion Resp: Reports: dyspnea; Denies: productive cough or wheezing GI: Denies: abdominal pain, nausea or vomiting : Denies: flank pain, difficulty voiding, dysuria, urinary frequency, urinary urgency or urinary hesitancy Musc: Reports: back pain (lower back ), muscle cramps and muscle weakness (right leg ) Skin/Breast: Denies: changes in skin color or dry skin Neuro: Reports: lack of coordination and frequent falls; Denies: headache(s), numbness in extremities, weakness in extremities or sensory changes Psych: Denies: anxiety Matt/Lymph: Denies: easy bruising or easy bleeding PFSH ED 2 PFSH: Medical History (Updated 04/17/25 @ 19:10 by JACKY Rosado) Centrilobular emphysema Orthostatic hypotension Vasovagal syncope Back pain Gout Surgical History H/O total vaginal hysterectomy (08/16/20) With colpocleisis. Performed by Dr. Luther at [facility] in [place], [place] S/P tonsillectomy History of salpingectomy (~1971) Open procedure for treatment of ectopic History of back surgery (~2005) Lumbar Family History Father CAD (coronary artery disease) Mother Hypertension Sister Hypertension Social History Smoking and tobacco/nicotine status: former use of tobacco/nicotine Quit status (tobacco/nicotine): has quit using Year quit tobacco: 07/2020 Former quit date comment: Most smoked numeral 2 PPD. Started age 51. Alcohol intake: never Substance/Drug Use: never Physical Exam 2 Const: COMMON NORMALS: no acute distress, average body habitus, patient oriented x3 and alert EXAM LIMITATIONS: altered mental status GENERAL APPEARANCE: cooperative and comfortable; not lethargic ORIENTATION/CONSCIOUSNESS: Yes awake, Yes oriented to person, Yes oriented to place and Yes oriented to time; not lethargic HENMT: COMMON NORMALS: normocephalic and atraumatic HEAD & SCALP: n ormocephalic and atraumatic Neck/C-Spine: COMMON NORMALS: no meningeal signs Lymph: LYMPHATIC: no lymphadenopathy noted Resp: COMMON NORMALS: normal respiratory effort, No retractions and clear to auscultation bilaterally AUSCULTATION: clear to auscultation bilaterally GI: COMMON NORMALS: Normal to inspection, nondistended, normoactive bowel sounds present and Soft to palpation PALPATION: Yes Soft to palpation : COMMON NORMALS: Yes no CVA tenderness BLADDER/KIDNEY EXAM: Yes no CVA tenderness Back/Pelvis: COMMON NORMALS: no CVA tenderness Extremity: COMMON NORMALS: normal to inspection, full ROM and capillary refill normal Neuro: COMMON NORMALS: patient oriented x3, CN's II-XII intact bilaterally, moves all extremities and no focal motor deficits SENSORIUM/ORIENTATION: Yes alert, Yes oriented to person, Yes oriented to place, Yes oriented to time, No Orientation impaired, No lethargic, No somnolent and No obtunded MENINGEAL SIGNS: Yes no meningeal signs and No nuccal rigidity COORDINATION/BALANCE: f [id number] test normal, [id number]-[id number] test normal and tandem gait normal S PEECH: speech normal MOTOR EXAM: 5/5 motor strength present throughout, Pronator motor function not present, no asterixis and Motor fasciculations not present COORDINATION: [id number]-[id number] test normal, uish-ws-[id number] test normal and tandem gait normal Psych: COMMON NORMALS: mental status grossly normal and Normal thought process present THOUGHT PROCESS: Normal thought process present Skin: COMMON NORMALS: no rashes or lesions noted and no wounds GENERAL SKIN EXAM: no rashes or lesions noted Course 2 Reevaluation(s): Reevaluation #1: No change Reevaluation #2: Patient now remembers she takes a daily multivitamin for elderly women. Consultations: Consultation #1: Dr. Mccallum accepted admission Vital Signs: Vital signs: Vital Signs Temperature 98.1 F 04/17/25 16:24 Pulse Rate 99 04/17/25 20:25 Respiratory Rate 18 04/17/25 20:25 Blood Pressure 163/96 04/17/25 20:25 Pulse Oximetry 95 04/17/25 20:25 Oxygen Delivery Me thod Room Air 04/17/25 20:25 MDM - Weakness Medical Decision Making 69-year-old female with confusion, worsening gait, slipping falls without injury, confusion, and now visual hallucinations. On initial workup urine is pending, calcium is 14. Patient does not take exogenous calcium intake. Will obtain a CT with differentials including stroke, and oncological in nature. Will check uric acid, PTH. Patient will receive 1 L IV fluid right away, replace potassium, and add on magnesium. Lab Data 04/17/25 16:30 04/17/25 16:30 Radiology Impressions Chest X-Ray 04/17/25 17:12 IMPRESSION: No acute findings. Head CT 04/17/25 17:45 IMPRESSION: No definite acute intracranial abnormality. Chronic incidentals as above. Laboratory Results WBC 8.47 10^3/uL (3.29-11.43) 04/17/25 16:30 RBC 4.08 10^6/uL (3.85-5.65) 04/17/25 16:30 Hgb 13.90 g/dL (11.27-16.99) 04/17/25 16: Hct 40.1 % (36-47) 04/17/25 16:30 MCV 98.3 fl (85-98) H 04/17/25 16:30 MCH 34.1 pg (27-33) H 04/17/25 16: MCHC 34.7 g/dL (30-55) 04/17/25 16:30 RDW 12.7 % (12.1-15.1) 04/17/25 16:30 Plt Count 337 10^3/cmm (157-399) 04/17/25 16:30 MPV 9.5 fL (7.4-10.4) 04/17/25 16:30 Neut % (Auto) 48.9 % 04/17/25 16:30 Lymph % (Auto) 41.7 % 04/17/25 16:30 [place] % (Auto) 7.9 % 04/17/25 16:30 Eos % (Auto) 0.7 % 04/17/25 16: Baso % (Auto) 0.6 % 04/17/25 16:30 Neut # (Auto) 4.14 10^3/uL (1.8-7.7) 04/17/25 16:30 Lymph # (Auto) 3.5 10^3/uL (0.8-4.8) 04/17/25 16:30 [place] # (Auto) 0.7 10^3/uL (0.2-0.9) 04/17/25 16:30 Eos # (Auto) 0.1 10^3/uL (0.0-0.8) 04/17/25 16:30 Baso # (Auto) 0.1 10^3/uL (0.0-0.1) 04/17/25 16:30 Nucleated RBC % (auto) 0 % 04/17/25 16:30 Nucleated RBCs # 0.0 /100WBC 04/17/25 16:30 Sodium 137 mmol/L (136-145) 04/17/25 16:30 Potassium 3.3 mmol/L (3.5-5.1) L 04/17/25 16:30 Chloride 95 mmol/L (98-107) L 04/17/25 16:30 Carbon Dioxide 28 mmol/L (22-29) 04/17/25 16:30 Anion Gap 17.3 (5-19) 04/17/25 16:30 BUN 16 mg/dL (8-23) 04/17/25 16:30 Creatinine 1.3 mg/dL (0.5-0.9) H 04/17/25 16:30 GFR Calculation Not Reportable 04/17/25 16:30 Glucose 160 mg/dL (65-115) H 04/17/25 16:30 Calculated Osmolality 289 mOsm/kg (285-295) 04/17/25 16:30 Uric Acid 8.3 mg/dL (2.4-5.7) H 04/17/25 16:30 Calcium 14.0 mg/dL (8.5-10.5) H* 04/17/25 16:30 Ionized Calcium Mike 1.6 mmol/L (1.1-1.4) H 04/17/25 19:50 Magnesium 1.6 mg/dL (1.7-2.3) L 04/17/25 16:30 Total Bilirubin 0.6 mg/dL (0.15-1.2) 04/17/25 16:30 AST 36 U/L (0-32) H 04/17/25 16:30 ALT 30 U/L (0-33) 04/17/25 16:30 Alkaline Phosphatase 86 U/L (35-105) 04/17/25 16:30 Total Protein 7.2 g/dL (6.6-8.7) 04/17/25 16:30 Albumin 4.4 g/dL (3.5-5.2) 04/17/25 16:30 Globulin 2.8 g/dL (1.3-4.6) 04/17/25 16:30 Urine Color Yellow (Yellow) 04/17/25 17:02 Urine Appearance Cloudy (CLEAR) A 04/17/25 17:02 Urine pH 6.0 (5-7) 04/17/25 17:02 Ur Specific [place] 1.020 (1.005-1.030) 04/17/25 17:02 Urine Protein Trace (Negative) A 04/17/25 17:02 Urine Glucose (UA) Negative (Normal) 04/17/25 17:02 Urine Ketones Trace (Negative) 04/17/25 17:02 Urine Blood Negative (Negative) 04/17/25 17:02 Urine Nitrate Positive (Negative) A 04/17/25 17:02 Urine Bilirubin Negative (Negative) 04/17/25 17:02 Urine Urobilinogen 1.0 mg/dL (Negative) 04/17/25 17:02 Ur Leukocyte Esterase 2+ (Negative) A 04/17/25 17:02 Urine RBC 3-5 /hpf (0-2) 04/17/25 17:02 Urine WBC >100 /hpf (0-5) H 04/17/25 17:02 Ur Squamous Epith Cells 0-5 /hpf (0-5) 04/17/25 17:02 Uric Acid Crystals 5-10 /hpf H 04/17/25 17:02 Amorphous Sediment Not Reportable 04/17/25 17:02 Urine Bacteria 4+ /hpf (NONE) H 04/17/25 17:02 Hyaline Casts 13.22 /lpf 04/17/25 17:02 Ur Oval Fat Bodies 1+ /hpf 04/17/25 17:02 All radiology interpretation(s) finalized by discharge Discharge Plan Discharge Patient Disposition: Admitted As Inpatient Clinical Impression: Hypercalcemia, Pyuria Condition: Stable Discharge Diet: As Directed Discharge Activity: Resume usual activity Coding Level of Care Code ED Surface Boss for Sam Amezquita
[2025-04-17 17:16] LABS: Glucose Urine UA Negative (Normal); Nitrate Urine Positive (Negative); Specific Gravity, Urine 1.020 (1.005-1.030)
[2025-04-17 17:20] LABS: Alanine Aminotransferase 30 U/L (0-33); Albumin Level 4.4 g/dL (3.5-5.2); Alkaline Phosphatase 86 U/L (35-105); Anion Gap 17.3 (5-19); Aspartate Amino Transferase 36 U/L (0-32); Blood Urea Nitrogen 16 mg/dL (8-23); Carbon Dioxide 28 mmol/L (22-29); Chloride 95 mmol/L (98-107); Globulin 2.8 g/dL (1.3-4.6); Glucose 160 mg/dL (65-115); Osmolality Calculated 289 mOsm/kg (285-295); Potassium 3.3 mmol/L (3.5-5.1); Sodium 137 mmol/L (136-145); Total Protein 7.2 g/dL (6.6-8.7)
[2025-04-17 17:22] LABS: Add Urine Microscopic? YES
[2025-04-17 17:40] LABS: Calcium 14.0 mg/dL (8.5-10.5)
--- NOTE | 2025-04-17 17:45 | CTR_ITS ---
PROCEDURE INFORMATION: Exam: CT Head Without Contrast Exam date and time: 04/17/2025 5:54 PM Age: 69 years old Clinical indication: Altered mental status/memory loss and other: General weakness; General weakness with confusion; Additional info: Altered mentation, calcium 14 TECHNIQUE: Imaging protocol: Computed tomography of the head without contrast. Radiation optimization: All CT scans at this facility use at least one of these dose optimization techniques: automated exposure control; mA and/or kV adjustment per patient size (includes targeted exams where dose is matched to clinical indication); or iterative reconstruction. COMPARISON: No relevant prior studies available. RADIATION DOSE METRICS: Total DLP (mGy-cm): 988.18 FINDINGS: Brain: Lacunar foci in the bilateral basal ganglia and thalami as well as héctor. Likely chronic. Chronic small-vessel ischemic change. Cerebral ventricles: mild involutional changes of the ventricles and sulci. Paranasal sinuses: Visualized sinuses are unremarkable. No fluid levels. Mastoid air cells: Visualized mastoid air cells are well aerated. Bones: Unremarkable. No acute fracture. Soft tissues: Unremarkable. CT/CT head wo con* [id number] IMPRESSION: No definite acute intracranial abnormality. Chronic incidentals as above.
[2025-04-17 18:12] LABS: UA Slide Review UA Slide Review Perf
[2025-04-17 18:13] LABS: Oval Fat Bodies Urine 1+ /hpf
[2025-04-17 18:36] LABS: Magnesium 1.6 mg/dL (1.7-2.3); Uric Acid 8.3 mg/dL (2.4-5.7)
[2025-04-17] MEDS: cefTRIAXone 1,000 mg SDV 1000 MG IVP (19:26)
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
[2025-04-17] MEDS: FUROsemide 10 mg/mL SDV 2mL 20 MG IVP (22:12)
[2025-04-17] MEDS: sodium chlor 0.9% + KCl 20 mEq 20 MEQ/1,000 ML BAG 125 MEQ IV (22:13)
[2025-04-17] MEDS: magnesium sulfate premix 2 GM/50 ML PIGGYBACK IV (22:26)
[2025-04-18] VITALS (9 sets, daily range): BP systolic 122–133; BP diastolic 72–83; PULSE 63–102; RESP 14–19; TEMP 36.4–36.8; O2SAT 94–97
[2025-04-18 05:23] LABS: Anion Gap 13.3 (5-19); Blood Urea Nitrogen 15 mg/dL (8-23); Calcium 10.8 mg/dL (8.5-10.5); Carbon Dioxide 24 mmol/L (22-29); Chloride 109 mmol/L (98-107); Creatinine Clr Calc Pharmacy 51.1906; Glucose 134 mg/dL (65-115); Magnesium 2.0 mg/dL (1.7-2.3); Osmolality Calculated 297 mOsm/kg (285-295); Potassium 4.3 mmol/L (3.5-5.1); Sodium 142 mmol/L (136-145); Thyroid Stimulating Hormone 2.22 uIU/mL (0.27-4.20)
[2025-04-18] MEDS: sodium chlor 0.9% + KCl 20 mEq 20 MEQ/1,000 ML BAG 125 MEQ IV (08:28)
--- NOTE | 2025-04-18 10:22 | CTR_ITS ---
PROCEDURE INFORMATION: Exam: CT Chest Without Contrast; Diagnostic Exam date and time: 04/18/2025 10:56 AM Age: 69 years old Clinical indication: Abnormal findings; Abnormal lab test; Other: Elevated calcium; Abnormal diagnostic tests; Prior surgery; Surgery date: 6+ months; Surgery type: Lumbar; Additional info: Hypercalcemia, jeremy, evalute for lung vs renal CA, hypercalcemia, jeremy, evaluate for lung vs renal CA TECHNIQUE: Imaging protocol: Diagnostic computed tomography of the chest without contrast. Radiation optimization: All CT scans at this facility use at least one of these dose optimization techniques: automated exposure control; mA and/or kV adjustment per patient size (includes targeted exams where dose is matched to clinical indication); or iterative reconstruction. COMPARISON: CR (CHEST, ) 04/17/2025 5:31 PM RADIATION DOSE METRICS: Total DLP (mGy-cm): 639.88 FINDINGS: Lungs: Mild dependent densities are seen in the lower lobes bilaterally, right slightly greater than left. Mild to moderate emphysema. Calcified pulmonary nodules are seen bilaterally. There is a 3 mm noncalcified pulmonary nodule in the right upper lobe. Pleural spaces: Unremarkable. No pneumothorax. No pleural effusion. Heart: Unremarkable. No cardiomegaly. No pericardial effusion. Coronary arteries: Mild coronary calcification. Lymph nodes: Unremarkable. No enlarged lymph nodes. Vasculature: Unremarkable. No aortic aneurysm. Bones/joints: Unremarkable. No acute fracture. Soft tissues: Unremarkable. CT Chest at 12 months. (Reference: Zulma) COMMENTS: The presence of pulmonary emphysema on CT is an independent risk factor for lung cancer. In the absence of a history or active diagnosis of lung cancer, it is recommended that this patient with emphysema be evaluated for enrollment in a low dose CT lung cancer screening program. REFERENCES: Zulma Hernandez et al. Guidelines for Management of Incidental Pulmonary Nodules Detected on CT Images: From the Fleischner Society 2017. Radiology. 2017;284(1):228-243. PROCEDURE INFORMATION: Exam: CT Abdomen And Pelvis Without Contrast Exam date and time: 04/18/2025 10:56 AM Age: 69 years old Clinical indication: Abnormal findings; Abnormal lab test; Other: Elevated calcium; Abnormal diagnostic tests; Prior surgery; Surgery date: 6+ months; Surgery type: Lumbar; Additional info: Hypercalcemia, jeremy, evalute for lung vs renal CA, hypercalcemia, jeremy, evaluate for lung vs renal CA TECHNIQUE: Imaging protocol: Computed tomography of the abdomen and pelvis without contrast. Radiation optimization: All CT scans at this facility use at least one of these dose optimization techniques: automated exposure control; mA and/or kV adjustment per patient size (includes targeted exams where dose is matched to clinical indication); or iterative reconstruction. COMPARISON: MR lumbar spine wo con* [id number] 06/29/2024 2:43 PM RADIATION DOSE METRICS: Total DLP (mGy-cm): 639.88 FINDINGS: Liver: The liver appears slightly low in density diffusely suggesting fatty infiltration. Gallbladder and biliary ducts: Normal. No calcified stones. No ductal dilation. Pancreas: Normal. No ductal dilation. Spleen: Normal. No splenomegaly. Adrenal glands: Normal. No mass. Kidneys and ureters: Normal. No hydronephrosis. Stomach and bowel: Diverticulosis of the descending and sigmoid colon. Appendix: No evidence of appendicitis. Intraperitoneal space: Unremarkable. No free air. No significant fluid collection. Vasculature: Unremarkable. No abdominal aortic aneurysm. Lymph nodes: Unremarkable. No enlarged lymph nodes. Urinary bladder: Unremarkable as visualized. Reproductive: Status post hysterectomy. Bones/joints: Unremarkable. No acute fracture. Soft tissues: Unremarkable. CT/[place] [id number] IMPRESSION: 1. 3 mm pulmonary nodule in the right upper lobe which is noncalcified. Emphysema. For patients at low risk (minimal or absent history of smoking and of other known risk factors), no routine follow-up is indicated. For patients at high risk (history of smoking or of other known risk factors), consider optional IMPRESSION: 1. Suggestion of mild diffuse fatty liver. 2. The kidneys are grossly unremarkable on this limited noncontrast study.
[2025-04-18 10:53] LABS: Calcium 10.7 mg/dL (8.5-10.5)
--- NOTE | 2025-04-18 11:30 | P.PN_ITS ---
Subjective 2 Subjective: Patient's family is currently at bedside and reporting that her mentation is improving. Patient is currently able to correctly answer her name, age, date of . Tells me that she lives in [place] and that she is in the hospital at this present time. She states she has been constipated for several weeks however does not realize that she had been disoriented. Calcium has improved to 10.8, down from 14 this morning. Medications: Reviewed: Yes Vitals/I&O/Wt Last Vital Signs Temp 97.6 F 04/18/25 11:38 Pulse 63 04/18/25 11:38 Resp 16 04/18/25 11:38 BP 133/80 04/18/25 11:38 Pulse Ox 96 04/18/25 11:38 O2 Del Method Room Air 04/18/25 11:38 04/18/25 04/18/25 04/18/25 06:59 14:59 22:59 Intake Total 3050 / 3050 360 / 360 Output Total 400 / 400 Balance 2650 / 2650 360 / 360 Weight last 48 hrs Weight 75.296 kg Weight 69.127 kg Physical Exam 2 Narrative: General: No acute distress, generalized weakness, AO x3 HEENT: PERRLA, pupils bilaterally equal and reactive, pallors not present Chest: Normal vesicular breath sounds, no added sounds, equal good air entry bilaterally CVS: S1-S2 regular, no murmurs, no tachycardia, no gallops, no rubs Abdomen: Soft, nontender, no organomegaly, bowel sounds present Neuro: No focal deficits, no facial deformity, AO x3, power 5/5 in all limbs Data 04/17/25 16:30 04/18/25 04:31 Micro: Microbiology 04/17/25 17:02 Urine Culture - Preliminary Urine,Clean Catch Gram Negative Rods A&P Assessment and plan 1. Hypercalcemia: Patient has severe hypercalcemia 14 in the setting of a normal albumin of 4.4. She does take Tums 2 daily and a multivitamin but typically that is not enough to cause hypercalcemia to this degree. PTH and PTH related peptide are pending. Physical exam demonstrates no thyroid mass. If the PTH is elevated will need further investigation there. Will treat with saline diuresis at this time. Hormone related causes first on the differential now excess calcium intake seems less likely. Malignancy also possibility though CT of the head and chest x-ray are negative on initial imaging. Patient is on thiamine diuretic which can contribute to hypercalcemia though again not likely to cause this degree of hypercalcemia. HCTZ is stopped. Will check vitamin D level and urine calcium and TSH If not responding to just saline diuresis will c consider calcitonin and bisphosphonate glucocorticoids. In the meantime we will give furosemide and saline 2. UTI (urinary tract infection): Continue with Rocephin 1 g IV daily 3. Altered mental status: Patient is having delusions and some visual hallucinations as well as generalized slowing of mentation and loss of balance. Will treat hypercalcemia and start PT and OT Plan: April 18, 2025 Patient's mental status appears to be improving today. She is awake alert and oriented. No current hallucinations. Family at bedside states that mental status appears to be improving. Calcium is improved to 10.8, down from 14 yesterday. Cause of the hypercalcemia is currently unclear. Requested to add on PTH to her a.m. labs which has now returned low at 13.3. This favors a non-PTH mediated hypercalcemia. Awaiting PTH related peptide, 125 dihydroxy vitamin D and 25- hydroxy vitamin D levels. There is no known history of granulomatous disease. Will obtain CT of the chest abdomen and pelvis to assess for any underlying malignancy which may be driving the hypercalcemia. Ordered for serum and urine protein electrophoresis. She denies taking any vitamin D supplementation. Continue IV fluids normal saline at 125 cc an hour . Will likely discontinue hydrochlorothiazide at discharge. Plan to recheck calcium again on evening labs. If continues with a downtrend to continue IV fluids at this time. If increasing, will add calcitonin. Continue ceftriaxone for UTI. Pending urine culture. This is currently not related to her hypercalcemia or her altered mental status. PDMP PDMP Reviewed: Not Reviewed Attestations 2 Medical Necessity Statement*: Continued need for IV fluids, serial calcium measurement, CT as planned today. Coding Level of Care Code Acute Code for [facility] Diagnoses Hypercalcemia E83.52 UTI (urinary tract infection) N39.0 Altered mental status R41.82
[2025-04-18 16:14] LABS: Alanine Aminotransferase 30 U/L (0-33); Albumin Level 3.7 g/dL (3.5-5.2); Alkaline Phosphatase 69 U/L (35-105); Anion Gap 14.9 (5-19); Aspartate Amino Transferase 35 U/L (0-32); Blood Urea Nitrogen 15 mg/dL (8-23); Calcium 9.9 mg/dL (8.5-10.5); Carbon Dioxide 20 mmol/L (22-29); Chloride 110 mmol/L (98-107); Creatinine Clr Calc Pharmacy 55.7590; Globulin 2.5 g/dL (1.3-4.6); Glucose 108 mg/dL (65-115); Osmolality Calculated 293 mOsm/kg (285-295); Potassium 3.9 mmol/L (3.5-5.1); Sodium 141 mmol/L (136-145); Total Protein 6.2 g/dL (6.6-8.7)
--- NOTE | 2025-04-18 18:12 | PC.NURSE ---
Shift summary: Pt has resting in the bed and sat up in chair today. VSS.. Sinus rhythm noted on monitor. Pt denied pain or other discomforts today. She ate well, at least 75% of every meal. She has a bag of peppermint candies tucked into be with her that she nibbles on. She has made multiple trips to [facility], urine and Bm noted with every trip. Still waiting on a clean catch of urine to send to the lab. She refused The docusate sodium both times today, she stated she had diarrhea and she did not want any more diarrhea. Family have been in out of her room today, very attentive.
[2025-04-18] MEDS: cefTRIAXone 1,000 mg SDV 1000 MG IVP (21:21)
[2025-04-18] MEDS: haloperidol inj 5 mg/mL INJ 1 mL 2.5 MG IVP (23:41)
[2025-04-19] VITALS (9 sets, daily range): BP systolic 112–150; BP diastolic 65–88; PULSE 86–96; RESP 16–17; TEMP 36.3–36.8; O2SAT 95–97
[2025-04-19] MEDS: sodium chlor 0.9% + KCl 20 mEq 20 MEQ/1,000 ML BAG 125 MEQ IV ×2 (00:28→08:11)
[2025-04-19 03:34] LABS: Hematocrit 36.1 % (36-47); Hemoglobin 11.80 g/dL (11.27-16.99); Mean Corpuscular HGB Conc 32.7 g/dL (30-55); Mean Corpuscular Hemoglobin 34.3 pg (27-33); Mean Corpuscular Volume 104.9 fl (85-98); Nucleated Red Blood Cells % 0 %; Platelet Count 271 10^3/cmm (157-399); Red Blood Count 3.44 10^6/uL (3.85-5.65); White Blood Count 9.94 10^3/uL (3.29-11.43)
[2025-04-19 03:37] LABS: Alanine Aminotransferase 34 U/L (0-33); Albumin Level 4.1 g/dL (3.5-5.2); Alkaline Phosphatase 73 U/L (35-105); Anion Gap 19.2 (5-19); Aspartate Amino Transferase 42 U/L (0-32); Blood Urea Nitrogen 13 mg/dL (8-23); Calcium 9.4 mg/dL (8.5-10.5); Carbon Dioxide 18 mmol/L (22-29); Chloride 110 mmol/L (98-107); Creatinine Clr Calc Pharmacy 55.7590; Globulin 2.2 g/dL (1.3-4.6); Glucose 92 mg/dL (65-115); Magnesium 1.8 mg/dL (1.7-2.3); Osmolality Calculated 296 mOsm/kg (285-295); Potassium 4.2 mmol/L (3.5-5.1); Sodium 143 mmol/L (136-145); Total Protein 6.3 g/dL (6.6-8.7)
[2025-04-19] MEDS: haloperidol inj 5 mg/mL INJ 1 mL IVP (04:05)
--- NOTE | 2025-04-19 05:42 | PC.NURSE ---
Around 2309 pt was agitated, confused, took off down the hallway, tried to throw hands on the nurses, raising her voice, hallucinating. Dr. Mccallum was notified and he put in an order for 2.5mg Haldol IVP. Med given per SEP . Around 299, pt was still agitated and hallucinating. Dr. Mccallum notified again. said to give Haldol 5mg IVP. Med given per SEP. Physician notifications put in. Pt tolerated meds well. Call light, belongings in reach, bed locked lowest position, SR up x2, bed alarm on.
--- NOTE | 2025-04-19 18:57 | P.PN_ITS ---
Subjective 2 Subjective: Ongoing confusion, calcium normalized. Vitals/I&O/Wt Last Vital Signs Temp 97.4 F L 04/19/25 16:00 Pulse 95 04/19/25 16:00 Resp 17 04/19/25 16:00 BP 118/77 04/19/25 16:00 Pulse Ox 96 04/19/25 16:00 O2 Del Method Room Air 04/19/25 16:00 04/19/25 04/19/25 04/19/25 06:59 14:59 22:59 Intake Total 480 / 2080.000 1721.666 / 1721.666 Output Total 300 / 300 700 / 700 Balance 180 / 2154.502 7972.666 / 1021.666 Weight last 48 hrs Weight 74.162 kg Weight 75.296 kg Weight 69.127 kg Physical Exam 2 Const: COMMON NORMALS: no acute distress, average body habitus, healthy appearing and alert ORIENTATION/CONSCIOUSNESS: Yes oriented to person HENMT: COMMON NORMALS: normocephalic and atraumatic HEAD & SCALP: n ormocephalic and atraumatic Eye: COMMON NORMALS: Equal, round and reactive pupils present and EOMs intact bilaterally PUPIL: Yes Equal, round and reactive pupils present Neck/C-Spine: COMMON NORMALS: full ROM, no lymphadenopathy, supple and no JVD Lymph: LYMPHATIC: no lymphadenopathy noted Resp: COMMON NORMALS: normal respiratory effort, No retractions and clear to auscultation bilaterally AUSCULTATION: clear to auscultation bilaterally Cardio: COMMON NORMALS: no JVD, regular rate, regular rhythm, S1 normal heart sound present and S2 normal heart sound present RATE: regular rate RHYTHM: regular rhythm HEART SOUNDS: S1 normal heart sound present and S2 normal heart sound present GI: COMMON NORMALS: Soft to palpation, non-tender and no masses PALPATION: Yes Soft to palpation : COMMON NORMALS: Yes no CVA tenderness, Yes normal external appearance and Yes normal appearance of the vagina BLADDER/KIDNEY EXAM: Yes no CVA tenderness Back/Pelvis: COMMON NORMALS: no CVA tenderness, thoracic and lumbar spine normal to inspection and no thoracic nor lumbar tenderness Extremity: COMMON NORMALS: full ROM Neuro: COMMON NORMALS: CN's II-XII intact bilaterally S ENSORIUM/ORIENTATION: Yes alert, Yes oriented to person and Yes other (confused, not oriented to place.) Data 04/19/25 02:39 04/19/25 02:39 Micro: Microbiology 04/17/25 17:02 Urine Culture - Final Urine,Clean Catch Escherichia coli A&P Assessment and plan 1. Hypercalcemia: 2. Altered mental status: 3. UTI (urinary tract infection): Plan: 69 year old female preseting with hypercalcemia 1. Hypercalcemia: - Patient has severe hypercalcemia 14 in the setting of a normal albumin of 4.4. - takes Tums 2 daily and a multivitamin - PTH slightly suppressed - PTH related peptide are pending. - Physical exam demonstrates no thyroid mass. - CT of the head and chest x-ray are negative on initial imaging. - CT chest/ab/pelvix without significant lesions. 3mm pulmonary nodule, follow up with repeat scan in one year. Emphysema noted - HCTZ is stopped, which can cause hypercalcemia - Will check vitamin D level and urine calcium and TSH - stopped IV fluids as calcium is normalized - appears to be from medications/ingestion at this time. 2. UTI (urinary tract infection): Continue with Rocephin 1 g IV daily 3. Altered mental status: Patient is having delusions and some visual hallucinations as well as generalized slowing of mentation and loss of balance. Will treat hypercalcemia and start PT and OT - may have some delirium with underlying undiagnosed dementia PPx: lovenox Diet: regular Disposition - the send out labs may not be resulted for several days, can follow up outpatient - if calcium remains low in AM, consider discharge with PCP follow up as outpatient - consider neurology follow up. PDMP PDMP Reviewed: Not Reviewed Attestations 2 Medical Necessity Statement*: Inpatient for severe hypercalcemia, likely D/C in AM. Time Spent in Patient Care: 16 - 35 minutes (>than 50% of time sp ent in counselling and/or direct pt care on unit) . Coding Level of Care Code Acute Code for Chg Fwd Diagnoses Hypercalcemia E83.52 Altered mental status R41.82 UTI (urinary tract infection) N39.0
[2025-04-19] MEDS: cefTRIAXone 1,000 mg SDV 1000 MG IVP (21:33)
[2025-04-20 03:15] VITALS: BP 113/75; PULSE 97; RESP 16; TEMP 36.7; O2SAT 94
[2025-04-20 04:54] LABS: Hematocrit 33.3 % (36-47); Hemoglobin 11.30 g/dL (11.27-16.99); Mean Corpuscular HGB Conc 33.9 g/dL (30-55); Mean Corpuscular Hemoglobin 34.9 pg (27-33); Mean Corpuscular Volume 102.8 fl (85-98); Nucleated Red Blood Cells % 0 %; Platelet Count 281 10^3/cmm (157-399); Red Blood Count 3.24 10^6/uL (3.85-5.65); White Blood Count 7.43 10^3/uL (3.29-11.43)
[2025-04-20 05:27] LABS: Alanine Aminotransferase 44 U/L (0-33); Albumin Level 3.5 g/dL (3.5-5.2); Alkaline Phosphatase 69 U/L (35-105); Anion Gap 15.4 (5-19); Aspartate Amino Transferase 49 U/L (0-32); Blood Urea Nitrogen 8 mg/dL (8-23); Calcium 8.7 mg/dL (8.5-10.5); Carbon Dioxide 19 mmol/L (22-29); Chloride 111 mmol/L (98-107); Creatinine Clr Calc Pharmacy 67.1235; Globulin 2.4 g/dL (1.3-4.6); Glucose 88 mg/dL (65-115); Osmolality Calculated 292 mOsm/kg (285-295); Potassium 3.4 mmol/L (3.5-5.1); Sodium 142 mmol/L (136-145); Total Protein 5.9 g/dL (6.6-8.7)
[2025-04-20 05:33] VITALS: PULSE 89
--- NOTE | 2025-04-20 07:52 | PC.SOCIAL ---
Late Entry: IMM Update 04/19/25 @ 0900 IMM Updated and reviewed w/ patients daughter in law. Copy provided and copy dated, initialed and placed in chart.
[2025-04-20 08:00] VITALS: BP 157/89; PULSE 86; RESP 17; TEMP 36.5; O2SAT 94
[2025-04-20 10:20] LABS: PROTEIN, TOTAL 5.8 g/dL (6.1-8.1)
--- NOTE | 2025-04-20 10:46 | P.DS_ITS ---
Discharge Providers Date of Admission: 04/17/25 21:15 Date of Discharge: April 20, 2025 Attending Provider at Admission: Herber Mccallum MD Attending Provider at Discharge: Christian Louise MD Diagnoses at Discharge Discharge Diagnosis 1. Hypercalcemia: 2. Altered mental status: 3. UTI (urinary tract infection): Reason for Visit Reason for Visit: Confused Falling Stroke like symptoms Hospital Course Hospital Course 69 year old female preseting with hypercalcemia 1. Hypercalcemia: - Patient has severe hypercalcemia at 14 in the setting of a normal albumin of 4.4 on admission, now resolved. - takes Tums 2 daily and a multivitamin - PTH slightly suppressed - PTH related peptide pending. - Physical exam demonstrates no thyroid mass. - CT of the head and chest x-ray are negative on initial imaging. - CT chest/ab/pelvix without significant lesions. 3mm pulmonary nodule, follow up with repeat scan in one year. Emphysema noted - HCTZ is stopped, which can cause hypercalcemia - check vitamin D level and urine calcium (pending) - TSH normal - stopped IV fluids as calcium is normalized, continues to fall this AM. - appears to be from medications/ingestion at this time. 2. UTI (urinary tract infection): Continue with Rocephin 1 g IV daily - switch to oral abx at time of discharge. 3. Altered mental status: Patient has delusions and some visual hallucinations as well as generalized slowing of mentation and loss of balance. Will treat hypercalcemia and start PT and OT - may have some delirium with underlying undiagnosed dementia - symptoms appeart to be resolving - follow up with neurology as outpatient. Hypophosphatemia - replete, recheck on follow up. HTN - stopped HCTZ as this can contribute to hypercalcemia PPx: lovenox Diet: regular Disposition - the send out labs may not be resulted for several days, can follow up outpatient - discharge planning for today - follow up with PCP in 2-4 weeks to check calcium and electrolyte levels, follow up on send out labs, as well as HTN check and medication optimization. - consider neurology follow up. Physical Exam Narrative: Physical Exam Const: no acute distress, average body habi tus, healthy appea ring and alert and oriented x3 this AM HENMT: normocephalic and atraumatic Eye: Equal, round and r eactive pupils pre sent and EOMs inta ct bilaterally Neck/C-Spine: full ROM, no lymph adenopathy, supple and no JVD Lymph: lymphadenopathy no barrie Resp: normal respiratory effort, No retrac tions and clear to auscultation bila terally Cardio: no JVD, regular ra te, regular rhythm , S1 normal heart sound present and S2 normal heart so und present GI: Soft to palpation, non-tender and no masses : no CVA tenderness, Back/Pelvis: thoracic and lumba r spine normal to inspection and no thoracic nor lumba r tenderness Extremity: full ROM Neuro: CN's II-XII intact bilaterally Discharge Data Studies Completed and Pending Completed Studies During Hospitalization Category Date Time Status CT chest abdomen pelvis [[place] [id number] Cat Scan 04/18/25 10:22 Completed ] Routine CT head wo con* [id number] Stat Cat Scan 04/17/25 17:45 Completed XR chest 1V portable [id number] Stat Exams 04/17/25 17:12 Completed Pending at discharge Category Date Time Status PTH Related Peptide (Protein) Stat Lab 04/17/25 16:30 Received SPEP [Total Protein Electrophoresis] Routine Lab 04/18/25 15:33 Results Urine Protein Electrop Random Routine Lab 04/18/25 15:13 Uncollected Vitamin D 1,25 Dihydroxy Routine Lab 04/17/25 04:31 Received Radiology Impressions Chest X-Ray 04/17/25 17:12 IMPRESSION: No acute findings. Head CT 04/17/25 17:45 IMPRESSION: No definite acute intracranial abnormality. Chronic incidentals as above. Chest/Abdomen/Pelvis CT 04/18/25 10:22 IMPRESSION: 1. 3 mm pulmonary nodule in the right upper lobe which is noncalcified. Emphysema. For patients at low risk (minimal or absent history of smoking and of other known risk factors), no routine follow-up is indicated. For patients at high risk (history of smoking or of other known risk factors), consider optional IMPRESSION: 1. Suggestion of mild diffuse fatty liver. 2. The kidneys are grossly unremarkable on this limited noncontrast study. Laboratory Results WBC 7.43 10^3/uL (3.29-11.43) 04/20/25 04:03 RBC 3.24 10^6/uL (3.85-5.65) L 04/20/25 04:03 Hgb 11.30 g/dL (11.27-16.99) 04/20/25 04:03 Hct 33.3 % (36-47) L 04/20/25 04:03 MCV 102.8 fl (85-98) H 04/20/25 04:03 MCH 34.9 pg (27-33) H 04/20/25 04:03 MCHC 33.9 g/dL (30-55) 04/20/25 04:03 RDW 12.7 % (12.1-15.1) 04/20/25 04:03 Plt Count 281 10^3/cmm (157-399) 04/20/25 04:03 MPV 9.4 fL (7.4-10.4) 04/20/25 04:03 Neut % (Auto) 50.3 % 04/20/25 04:03 Lymph % (Auto) 39.7 % 04/20/25 04:03 [place] % (Auto) 8.1 % 04/20/25 04:03 Eos % (Auto) 1.3 % 04/20/25 04:03 Baso % (Auto) 0.5 % 04/20/25 04:03 Neut # (Auto) 3.73 10^3/uL (1.8-7.7) 04/20/25 04:03 Lymph # (Auto) 3.0 10^3/uL (0.8-4.8) 04/20/25 04:03 [place] # (Auto) 0.6 10^3/uL (0.2-0.9) 04/20/25 04:03 Eos # (Auto) 0.1 10^3/uL (0.0-0.8) 04/20/25 04:03 Baso # (Auto) 0.0 10^3/uL (0.0-0.1) 04/20/25 04:03 Nucleated RBC % (auto) 0 % 04/20/25 04:03 Nucleated RBCs # 0.0 /100WBC 04/20/25 04:03 Sodium 142 mmol/L (136-145) 04/20/25 04:03 Potassium 3.4 mmol/L (3.5-5.1) L 04/20/25 04:03 Chloride 111 mmol/L (98-107) H 04/20/25 04:03 Carbon Dioxide 19 mmol/L (22-29) L 04/20/25 04:03 Anion Gap 15.4 (5-19) 04/20/25 04:03 BUN 8 mg/dL (8-23) 04/20/25 04:03 Creatinine 0.9 mg/dL (0.5-0.9) 04/20/25 04:03 GFR Calculation Not Reportable 04/20/25 04:03 Glucose 88 mg/dL (65-115) 04/20/25 04:03 Calculated Osmolality 292 mOsm/kg (285-295) 04/20/25 04:03 Uric Acid 8.3 mg/dL (2.4-5.7) H 04/17/25 16:30 Calcium 8.7 mg/dL (8.5-10.5) 04/20/25 04:03 Ionized Calcium Mike 1.2 mmol/L (1.1-1.4) 04/19/25 02:39 Phosphorus 2.1 mg/dL (2.5-4.5) L 04/19/25 02:39 Magnesium 1.8 mg/dL (1.7-2.3) 04/19/25 02:39 Total Bilirubin 0.3 mg/dL (0.15-1.2) 04/20/25 04:03 AST 49 U/L (0-32) H 04/20/25 04:03 ALT 44 U/L (0-33) H 04/20/25 04:03 Alkaline Phosphatase 69 U/L (35-105) 04/20/25 04:03 Total Protein 5.9 g/dL (6.6-8.7) L 04/20/25 04:03 Albumin 3.5 g/dL (3.5-5.2) 04/20/25 04:03 Globulin 2.4 g/dL (1.3-4.6) 04/20/25 04:03 TSH 2.22 uIU/mL (0.27-4.20) 04/18/25 04:31 PTH Intact 13.3 pg/mL (15-65) L 04/18/25 04:31 Calcium (PTH Intact) 10.7 mg/dL (8.5-10.5) H 04/18/25 04:31 Urine Color Yellow (Yellow) 04/17/25 17:02 Urine Appearance Cloudy (CLEAR) A 04/17/25 17:02 Urine pH 6.0 (5-7) 04/17/25 17:02 Ur Specific [place] 1.020 (1.005-1.030) 04/17/25 17:02 Urine Protein Trace (Negative) A 04/17/25 17:02 Urine Glucose (UA) Negative (Normal) 04/17/25 17:02 Urine Ketones Trace (Negative) 04/17/25 17:02 Urine Blood Negative (Negative) 04/17/25 17:02 Urine Nitrate Positive (Negative) A 04/17/25 17:02 Urine Bilirubin Negative (Negative) 04/17/25 17:02 Urine Urobilinogen 1.0 mg/dL (Negative) 04/17/25 17:02 Ur Leukocyte Esterase 2+ (Negative) A 04/17/25 17:02 Urine RBC 3-5 /hpf (0-2) 04/17/25 17:02 Urine WBC >100 /hpf (0-5) H 04/17/25 17:02 Ur Squamous Epith Cells 0-5 /hpf (0-5) 04/17/25 17:02 Uric Acid Crystals 5-10 /hpf H 04/17/25 17:02 Amorphous Sediment Not Reportable 04/17/25 17:02 Urine Bacteria 4+ /hpf (NONE) H 04/17/25 17:02 Hyaline Casts 13.22 /lpf 04/17/25 17:02 Ur Oval Fat Bodies 1+ /hpf 04/17/25 17:02 Ur Random Calcium 83.1 mg/dL 04/17/25 23:20 Vitals Last Vital Signs Temp 97.7 F 04/20/25 08:00 Pulse 86 04/20/25 08:00 Resp 17 04/20/25 08:00 BP 157/89 04/20/25 08:00 Pulse Ox 94 04/20/25 08:00 O2 Del Method Room Air 04/20/25 08:00 Discharge Plan Discharge Patient Disposition: Home Health Service Condition: Stable Prescriptions: New cefdinir 300 mg capsule 300 mg PO BID Qty: 14 0RF Continued gabapentin 100 mg capsule 100 mg PO QID Qty: 120 3RF spironolactone 25 mg tablet See Rx Instructions .ROUTE .COMPLEX Qty: 180 3RF Dose Instruction: TAKE 2 TABLETS BY MOUTH EVERY DAY Rx Instructions: TAKE 2 TABLETS BY MOUTH EVERY DAY cyclobenzaprine 5 mg Tablet 5 mg PO BID PRN (Reason: Muscle Spasm) Discontinued hydrochlorothiazide 25 mg tablet See Rx Instructions .ROUTE .COMPLEX Qty: 90 3RF Dose Instruction: TAKE 1 TABLET BY MOUTH EVERY DAY Rx Instructions: TAKE 1 TABLET BY MOUTH EVERY DAY multivitamin Tablet 1 tab PO DAILY Discharge Order = DC NOW: Discharge Order (Routine); Ordered 04/20/25 Ordered By: Christian Louise Referrals: [facility] ([facility]) [Outside] Adrian Irvin MD [Staff Physician, Family Practice] Discharge Diet: As Directed Discharge Activity: Resume usual activity Patient Instructions: Opioid Safety, Patient Portal & Madi Instructions Discharge Attestations Time Spent in Discharge Care*: greater than 30 min Quality Metrics Clinical Quality Measures [ No reported AMI, CVA or VTE this stay] Coding Level of Care Code Acute Code for Chg Fwd Diagnoses Hypercalcemia E83.52 Altered mental status R41.82 UTI (urinary tract infection) N39.0
[2025-04-20 11:25] VITALS: BP 155/90; PULSE 92; RESP 18; TEMP 36.6; O2SAT 94
[2025-04-20 11:50] VITALS: BP 155/90; PULSE 92; RESP 18; TEMP 36.6; O2SAT 94
--- NOTE | 2025-04-20 12:05 | PC.NURSE ---
Discharged at 1150 with clothes on and phone with son. No c/o's
[2025-04-22 09:05] LABS: ALPHA 1 GLOBULIN 0.3 g/dL (0.2-0.3); ALPHA 2 GLOBULIN 0.7 g/dL (0.5-0.9); BETA 1 GLOBULIN 0.4 g/dL (0.4-0.6); BETA 2 GLOBULIN 0.4 g/dL (0.2-0.5)
== END 2025-04-20 11:50 | disposition home health service (06) | DRG 690 ==
LOC: ER 19:15 → MEDSURG 21:46
PROVIDERS: Student in an Organized Health Care Education/Training Program; Admitting Provider Internal Medicine; Emergency Provider Physician Assistant; Visit Provider Internal Medicine
DX: N39.0 Urinary tract infection, site not specified (principal); E83.52 Hypercalcemia; R41.0 Disorientation, unspecified; E83.39 Other disorders of phosphorus metabolism; I10 Essential (primary) hypertension; J43.2 Centrilobular emphysema; Z87.891 Personal history of nicotine dependence
CPT/HCPCS: 36415; 36600; 70450; 71045; 71250; 74176; 80048; 80053; 81001; 82310; 82330; 82340; 82542; 82652; 83735; 83970; 84100; 84155; 84165; 84443; 84550; 85025; 87077; 87086; 87186; 96361; 96365; 96372; 96375; 99285; J0696; J1630; J1650; J1938; J3475; J3480; J7030; J9999

== ENCOUNTER → 2025-05-04 12:43 | Outpatient (BNVA) | payer MEDICARE, SELFPAY | PROVIDERS: PCP Family Medicine; Visit Provider Family Medicine | DX: E83.52 Hypercalcemia (principal) | CPT/HCPCS: 80048 ==

== ENCOUNTER → 2025-05-26 09:40 | Outpatient (BNVA) | payer MEDICARE, SELFPAY | PROVIDERS: PCP Family Medicine; Visit Provider Family Medicine | DX: N39.0 Urinary tract infection, site not specified (principal); R41.82 Altered mental status, unspecified; E83.52 Hypercalcemia | CPT/HCPCS: 80053; 81000 ==

== ENCOUNTER → 2025-07-27 11:10 | Outpatient (BNVA) | payer MEDICARE, SELFPAY | PROVIDERS: PCP Family Medicine; Visit Provider Family Medicine | DX: E83.52 Hypercalcemia (principal) | CPT/HCPCS: 80048; 82306 ==